=== PATIENT | female | born 1945 | race Caucasian/White ===

== ENCOUNTER 2018-10-05 12:47 | Outpatient (CLI) | payer MEDICARE, SELFPAY ==
[2018-10-05 13:15] LABS: Hemoglobin A1C 5.3 % (4.5-6.2)
[2018-10-05 13:17] LABS: ALT 117 U/L (12-78); AST 172 U/L (15-37); Albumin 3.9 g/dL (3.4-5.0); Alkaline Phosphatase 98 U/L (46-116); Anion Gap 11.8 mmol/L (3-11); BUN 9 mg/dL (7-18); Bilirubin, Total 0.6 mg/dL (0.2-1.0); CO2 26.2 mmol/L (21.0-32.0); CREATININE 0.55 mg/dL (0.55-1.02); Calcium 8.8 mg/dL (8.5-10.1); Chloride 100 mmol/L (98-107); Glucose 82 mg/dL (70-100); Potassium 4.5 mmol/L (3.5-5.1); Sodium 138 mmol/L (136-145); Total Protein 7.1 g/dL (6.4-8.2)
== END 2018-10-05 13:07 ==
DX: I10 Essential (primary) hypertension; R01.1 Cardiac murmur, unspecified; R63.8 Other symptoms and signs concerning food and fluid intake; R73.01 Impaired fasting glucose; R74.0 Nonspecific elevation of levels of transaminase and lactic acid dehydrogenase [LDH]; Z86.59 Personal history of other mental and behavioral disorders; E03.9 Hypothyroidism, unspecified
CPT/HCPCS: 36415; 80053; 83036

== ENCOUNTER 2019-10-02 22:12 | Outpatient (REF) | payer MEDICARE, SELFPAY ==
[2019-10-02 22:32] LABS: HCT 35.8 % (36.0-46.0); HGB 12.9 g/dL (12.0-15.5); Mean Corpuscular Hemoglobin 35.3 pg (27.0-33.0); Mean Corpuscular Volume 98.1 fL (80-95); Mean Platelet Volume 11.2 fL (8.0-11.0); Platelet Count 189 x1000/uL (130-400); RBC 3.65 m/cumm (4.00-5.20); RBC Distribution Width 11.3 % (11.7-14.6)
[2019-10-02 22:35] LABS: Anion Gap 11.4 mmol/L (3-11); BUN 13 mg/dL (7-18); CO2 25.6 mmol/L (21.0-32.0); CREATININE 0.82 mg/dL (0.55-1.02); Calcium 8.9 mg/dL (8.5-10.1); Chloride 91 mmol/L (98-107); Glucose 137 mg/dL (74-106); Potassium 4.1 mmol/L (3.5-5.1); Sodium 128 mmol/L (136-145)
[2019-10-02 22:38] LABS: ALT 102 U/L (14-59); AST 133 U/L (15-37)
== END 2019-10-02 22:32 ==
LOC: LBN 22:12
PROVIDERS: Nurse Practitioner Family
DX: I10 Essential (primary) hypertension (principal); Z01.818 Encounter for other preprocedural examination
CPT/HCPCS: 80048; 85027; 84450; 84460

== ENCOUNTER 2019-10-04 09:13 | Day surgery (SDC) | payer MEDICARE, SELFPAY ==
[2019-10-04 09:30] VITALS: BP 166/90; PULSE 84; RESP 18; TEMP 36.5; O2SAT 98
--- NOTE | 2019-10-04 10:52 | W.PM.DSUDISC ---
Discharge Plan Disposition Patient Disposition: HOME Condition: Good Discharge Details Reason For Visit: CATARACT Attending Provider: John Vivar Primary Care Provider: Edith Robb Home Meds and New Rx's Prescriptions: No Action lisinopril 10 mg tablet 10 mg PO DAILY Qty: 90 RF: 3 hydrochlorothiazide 25 mg tablet 12.5 mg PO DAILY Qty: 90 RF: 3 Discharge Instructions Stand Alone Forms: Post-op Topical Cataract, Viridiana Quarles (DSU) Discharge Orders Discharge Orders: Discharge Order (Routine); Ordered 10/04/19 Ordered By: John Vivar DS: Diagnosis Discharge Diagnosis (1) Nuclear sclerotic cataract of left eye: Status: Resolved
[2019-10-04] MEDS: Tetracaine 0.5% 4 ML BTL OS (11:04)
[2019-10-04] MEDS: Lidocaine 2% Jelly 6 ML SYR (11:05)
[2019-10-04] MEDS: Lidocaine 1% Pres-Free 5 ML VIAL (11:05)
[2019-10-04] MEDS: Balanced Salt Soln.-PLUS 500 ML BAG (11:16)
[2019-10-04] MEDS: Moxifloxacin-PF 1 MG/ML VIAL (11:19)
[2019-10-04] MEDS: Trypan Blue 0.06% 0.5 ML SYR (11:24)
--- NOTE | 2019-10-04 11:41 | W.PM.OP ---
Date of service: 10/04/19 Time of Service: 11:41 Operative Note Operative Note DATE OF PROCEDURE: 10/04/19 PRE-OP DIAGNOSIS: Dense nuclear cataract, left eye POST-OP DIAGNOSIS: same PROCEDURE: Cataract extraction using phacoemulsification with intraocular lens implant, left eye SURGEON: John Vivar ANESTHESIA: MAC and local (sub-tenon's anesthetic infiltration) PATHOLOGY: none sent COMPLICATIONS: None Patient was transported to: same day Patient's condition: stable Implants: Ol[employer] Ol[employer] / [employer] Tecnis [id number] Indications: Progressive decreased vision due to cataract, left eye Procedure Description: CATARACT SURGERY OPERATIVE REPORT PREOPERATIVE DIAGNOSIS: Dense nuclear cataract, left eye POSTOPERATIVE DIAGNOSIS: Same OPERATION: Cataract extraction using phacoemulsification with posterior chamber intraocular lens implant, left eye. IOL: IOL Perinatal Breastfeeding Assistant/Model: J&J Vision / SUSAN Tecnis ZCB00 IOL Power: + 22.50 diopters IOL Serial Number: [id number] Optic Diameter: 6.0mm Haptic/Overall Diameter: 13.0mm PHACO INFO: Beto [employer]urion Vision System with OZil and Active Fluidics Cumulative Dispersed Energy (CDE): 25.75 seconds SURGEON: John Vivar MD, ARPAN ANESTHESIA: Monitored Anesthesia Care (MAC), with local sub-tenon's anesthetic infiltration COMPLICATIONS: None SPECIMENS: None INDICATIONS FOR PROCEDURE: The patient is a 73-year-old lady with history of diminished visual acuity in her left eye. She is noted to have a dense nuclear cataract. The option of cataract surgery was offered to the patient and she wished to proceed. PROCEDURE: The correct surgical eye was identified and marked as the left eye and the pupil was dilated in the preoperative area using mydriatics and cycloplegics. The dilated pupil size was 7.0 mm. Oral sedation was administered in the form of an Imprimis MKO Melt (midazolam 3mg/ketamine 25mg/ondansetron 2mg). The patient was brought to the operating room where cardiopulmonary monitoring was instituted and surgical time-out was performed, confirming the correct operative eye and IOL power. Topical anesthesia was administered and ophthalmic povidone-iodine 5% was instilled into the conjunctival fornices. Lidocaine gel was applied to the cornea and the helena-ocular area was prepped with Betadine 10% solution and draped in the usual sterile fashion for intraocular surgery, including an aperture drape. A Tegaderm transparent film dressing was cut in half and used to cover the lashes and lid margins. Care was taken to sequester the lashes and lid margins under the Tegaderm dressing. A lid speculum was placed between the lids of the operative eye and the Ashleigh-Michelet operating microscope was maneuvered into position. Jorge scissors were then used to make a conjunctival buttonhole approximately 6mm posterior to the limbus in the inferonasal quadrant. Blunt dissection was carried out to expose bare sclera, and a blunt-tipped sub-tenon?s anesthesia cannula was introduced and passed posteriorly along the globe where non-preserved plain lidocaine was injected into posterior sub-Tenon?s space. A sideport knife was used to make a paracentesis port superior/superiortemporally. Intraocular phenylephrine/lidocaine was injected into the anterior chamber. The anterior chamber was then filled with Healon Pro. A 2.4mm keratome knife was used to create a half-thickness groove at the limbus and then to construct a three-plane near-clear corneal tunnel extending 2.0mm into clear cornea in the temporal position. . A flap was raised on the anterior capsule and capsulorhexis forceps were used to complete a continuous curvilinear capsulorhexis of 5.0 mm. The anterior chamber was noted to be of moderate depth with moderate zonular laxity. Balanced salt solution was then used to perform cortical cleaving hydrodissection and nuclear hydrodelineation until the lens could be freely rotated within the capsular bag. The lens nucleus was then disassembled and removed within the capsular bag and iris plane using phacoemulsification. Residual cortical material was removed using the 45-degree angled silicone I/A tip with 0.3mm port. The posterior capsule was carefully polished to remove as much residual lens epithelial cells as safely possible. The capsular bag was then inflated and the anterior chamber deepened with viscoelastic. The lens implant described above was inserted into the capsular bag using the SUSAN [place] Injector. A Kuglen hook was used to dial the IOL into position. Residual viscoelastic was then removed first from posterior to the IOL, then from the anterior chamber using the I/A handpiece. The lens implant was noted to center nicely within the capsular bag. The incisions were stromally hydrated, and the anterior chamber was reformed using BSS. Then 0.5cc of moxifloxacin 1.0mg/ml were injected into the capsular bag and anterior chamber. The incisions were checked with a Weck spear and found to be secure. Several drops of ophthalmic povidone-iodine 5% were then applied to the eye followed by two drops of Imprimis combination prednisolone/moxifloxacin/nepafenac solution. The drapes were removed and a clear plastic protective eye shield was placed over the eye. The patient was then returned to Same Day Surgery in stable condition.
== END 2019-10-04 12:21 | disposition home or self-care (01) ==
PROVIDERS: Visit Provider Ophthalmology
PROC: (CPT 66984; principal; 2019-10-04 11:30)
DX: H25.12 Age-related nuclear cataract, left eye (principal); I10 Essential (primary) hypertension
CPT/HCPCS: 66984; V2632

== ENCOUNTER 2019-10-18 09:31 | Day surgery (SDC) | payer MEDICARE, SELFPAY ==
[2019-10-18 09:35] VITALS: BP 177/99; PULSE 73; RESP 16; TEMP 36.7; O2SAT 98
--- NOTE | 2019-10-18 10:26 | W.PM.DSUDISC ---
Discharge Plan Disposition Patient Disposition: HOME Condition: Good Discharge Details Reason For Visit: CATARACT OD Attending Provider: John Vivar Primary Care Provider: Edith Robb Home Meds and New Rx's Prescriptions: No Action lisinopril 10 mg tablet 10 mg PO DAILY Qty: 90 RF: 3 hydrochlorothiazide 25 mg tablet 12.5 mg PO DAILY Qty: 90 RF: 3 Discharge Instructions Stand Alone Forms: Post-op Topical Cataract, Viridiana Quarles (DSU) Discharge Orders Discharge Orders: Discharge Order (Routine); Ordered 10/18/19 Ordered By: John Vivar DS: Diagnosis Discharge Diagnosis (1) Nuclear sclerotic cataract of right eye: Status: Resolved
[2019-10-18] MEDS: Tetracaine 0.5% 4 ML BTL OD (10:35)
[2019-10-18] MEDS: Lidocaine 2% Jelly 6 ML SYR (10:36)
[2019-10-18] MEDS: Lidocaine 1% Pres-Free 5 ML VIAL (10:44)
[2019-10-18] MEDS: Balanced Salt Soln.-PLUS 500 ML BAG (10:45)
[2019-10-18] MEDS: Moxifloxacin-PF 1 MG/ML VIAL (10:47)
--- NOTE | 2019-10-18 11:09 | ROE_ITS ---
Date of service: 10/18/19 Time of Service: 11:09 Operative Note Operative Note DATE OF PROCEDURE: 10/18/19 PRE-OP DIAGNOSIS: Nuclear cataract, right eye POST-OP DIAGNOSIS: same PROCEDURE: Cataract extraction using phacoemulsification with intraocular lens implant, right eye SURGEON: John Vivar ANESTHESIA: MAC and local (sub-tenon's anesthetic infiltration) ESTIMATED BLOOD LOSS: 0 PATHOLOGY: none sent COMPLICATIONS: None Patient was transported to: same day Patient's condition: stable Implants: [employer] / [employer] Tecnis ZCB00 intr aocular lens Indications: Progressive decreased vision due to cataract, right eye Procedure Description: CATARACT SURGERY OPERATIVE REPORT PREOPERATIVE DIAGNOSIS: Nuclear cataract, right eye POSTOPERATIVE DIAGNOSIS: Same OPERATION: Cataract extraction using phacoemulsification with posterior chamber intraocular lens implant, right eye. IOL: IOL Horticultural Services Supervisor/Model: J&J Vision / SUSAN Tecnis ZCB00 IOL Power: + 22.50 diopters IOL Serial Number: [id number] Optic Diameter: 6.0mm Haptic/Overall Diameter: 13.0mm PHACO INFO: Beto [employer]ion Vision System with OZil and Active Fluidics Cumulative Dispersed Energy (CDE): 23.67 seconds SURGEON: John Vivar MD, ARPAN ANESTHESIA: Monitored Anesthesia Care (MAC), with local sub-tenon's anesthetic infiltration COMPLICATIONS: None SPECIMENS: None INDICATIONS FOR PROCEDURE: The patient is a 73-year-old lady with history of diminished visual acuity in both eyes secondary to the development of dense bilateral nuclear cataract, left eye worse than right. She has already undergone cataract surgery in her left eye and is doing well postoperatively. She now presents for cataract surgery in the right eye. PROCEDURE: The correct surgical eye was identified and marked as the right eye and the pupil was dilated in the preoperative area using mydriatics and cycloplegics. The dilated pupil size was 7.0 mm. Oral sedation was administered in the form of an Imprimis MKO Melt (midazolam 3mg/ketamine 25mg/ondansetron 2mg). The patient was brought to the operating room where cardiopulmonary monitoring was instituted and surgical time-out was performed, confirming the correct operative eye and IOL power. Topical anesthesia was administered and ophthalmic povidone-iodine 5% was instilled into the conjunctival fornices. Lidocaine gel was applied to the cornea and the helena-ocular area was prepped with Betadine 10% solution and draped in the usual sterile fashion for intraocular surgery, including an aperture drape. A Tegaderm transparent film dressing was cut in half and used to cover the lashes and lid margins. Care was taken to sequester the lashes and lid margins under the Tegaderm dressing. A lid speculum was placed between the lids of the operative eye and the Ashleigh-Michelet operating microscope was maneuvered into position. Jorge scissors were then used to make a conjunctival buttonhole approximately 6mm posterior to the limbus in the inferonasal quadrant. Blunt dissection was carried out to expose bare sclera, and a blunt-tipped sub-tenon?s anesthesia cannula was introduced and passed posteriorly along the globe where non- preserved plain lidocaine was injected into posterior sub-Tenon?s space. A sideport knife was used to make a paracentesis port inferiortemporally. Intraocular phenylephrine/lidocaine was injected into the anterior chamber. The anterior chamber was then filled with Healon Pro. A 2.4mm keratome knife was used to create a half-thickness groove at the limbus and then to construct a three-plane near-clear corneal tunnel extending 2.0mm into clear cornea in the superiortemporal position. . A flap was raised on the anterior capsule and capsulorhexis forceps were used to complete a continuous curvilinear capsulorhexis of 5.0 mm. Balanced salt solution was then used to perform cortical cleaving hydrodissection and nuclear hydrodelineation until the lens could be freely rotated within the capsular bag. The lens nucleus was then disassembled and removed within the capsular bag and iris plane using phacoemulsification. Residual cortical material was removed using the I/A handpiece. The posterior capsule was carefully polished to remove as much residual lens epithelial cells as safely possible. The capsular bag was then inflated and the anterior chamber deepened with viscoelastic. The lens implant described above was inserted into the capsular bag using the SUSAN [place] Injector. A Kuglen hook was used to dial the IOL into position. Residual viscoelastic was then removed first from posterior to the IOL, then from the anterior chamber using the I/A handpiece. The lens implant was noted to center nicely within the capsular bag. The incisions were stromally hydrated, and the anterior chamber was reformed using BSS. Then 0.5cc of moxifloxacin 1.0mg/ml were injected into the capsular bag and anterior chamber. The incisions were checked with a Weck spear and found to be secure. Several drops of ophthalmic povidone-iodine 5% were then applied to the eye followed by two drops of Imprimis combination prednisolone/moxifloxacin/nepafenac solution. The drapes were removed and a clear plastic protective eye shield was placed over the eye. The patient was then returned to Same Day Surgery in stable condition.
[2019-10-18 11:28] VITALS: BP 183/97; PULSE 65; RESP 20; TEMP 36; O2SAT 97
== END 2019-10-18 11:35 | disposition home or self-care (01) ==
PROVIDERS: Visit Provider Ophthalmology
PROC: (CPT 66984; principal; 2019-10-18 11:30)
DX: H25.11 Age-related nuclear cataract, right eye (principal); Z96.1 Presence of intraocular lens; Z98.42 Cataract extraction status, left eye; I10 Essential (primary) hypertension; I34.0 Nonrheumatic mitral (valve) insufficiency
CPT/HCPCS: 66984; V2632

== ENCOUNTER 2020-01-22 19:45 | Emergency (ER) | payer MEDICARE, SELFPAY ==
[2020-01-22] VITALS (33 sets, daily range): BP systolic 121–191; BP diastolic 29–69; PULSE 38–70; RESP 0–25; TEMP 37; O2SAT 93–98
--- NOTE | 2020-01-22 19:30 | RT.EKG_ITS ---
APPROVED REPORT Exam: Resting ECG Patient Location: E HR:41 bpm ECG Measurements Heart Rate 41 AXIS PA [id number] P [id number] QRSd 82 QRS -20 QT 588 T 75 QTc 485 Conclusion Junctional rhythm...absent P waves, slow V-rate - disagree Bradycardia w/ 3rd degree block. Normal axis. Normal interval. No acute ST changes.
--- NOTE | 2020-01-22 20:00 | DI.CT_ITS ---
EXAM: CT HEAD WO CLINICAL HISTORY: syncope with head strike TECHNIQUE: COMPARISON: No exams were available for comparison FINDINGS: Noncontrast cranial CT was. There is right posterior parietal size scalp hematoma. No underlying ca lvarial fracture. Visualized paranasal sinuses and mastoid air cells are clear. Orbital and tempora l bone structures appear intact. There as an apparent subarachnoid hemorrhage adjacent to the frontal aspect the left temporal lobe wi th probable associated temporal lobe contusion. There is a presumed small contusion the anterior asp ect of left cerebellar hemisphere. No gross subdural or epidural hematoma. No additional focal intr acerebral findings. Ventricular size system reflects mild cerebral atrophy consistent the patient's age. IMPRESSION: Areas of apparent contusion involving anterior aspect of left temporal lobe and anterior aspect of le ft cerebellar hemisphere with associated small subarachnoid hemorrhage in the left middle fossa anter iorly. RADIATION DOSE DELIVERED: 650.75mGy.cm Total DLP
--- NOTE | 2020-01-22 20:00 | DI.RAD_ITS ---
EXAM: XR CHEST 2V PA LATERAL CLINICAL HISTORY: syncope TECHNIQUE: COMPARISON: CR CHEST 2 VIEWS PA,LAT from 06/11/2010 FINDINGS: AP and lateral views of the chest were obtained. Cardiac size is within normal limits. Lungs are cl ear. No pleural effusion or pneumothorax. Mild right convex scoliosis noted. IMPRESSION: No evidence acute process. RADIATION DOSE DELIVERED: Total DLP
--- NOTE | 2020-01-22 20:05 | NUR.NOTE ---
EKG shows 3rd degree heart block. Placed on pacer pads. pt arrives with hematoma to right wrist from EMS IV attempt.
--- NOTE | 2020-01-22 20:13 | W.ED.GENAD ---
Discharge Plan Disposition Patient Disposition: [facility] Condition: Stable Discharge Details Clinical Impression: Syncope, Third degree heart block, SAH (subarachnoid hemorrhage), Cerebellar contusion Primary Care Provider: Edith Robb ED Provider: Amado Raymond [place] Meds and New Rx's Prescriptions: No Action lisinopril 10 mg tablet 10 mg PO DAILY Qty: 90 RF: 3 hydrochlorothiazide 25 mg tablet 25 mg PO DAILY RF: 0 Medical Decision Making Patient found to be in third-degree heart block on EKG. Monitor confirms with periods of ventricular bigeminy as well. Awake and alert and hemodynamically stable. Pacer pads placed. IV and labs sent. Will CT head because of syncope and posterior trauma. Chest x-ray ordered. 21:15 - Patient remains hemodynamically stable and neurologically intact. Chest x-ray is unremarkable. CT head shows evidence of left-sided intraparenchymal contusion and subarachnoid hemorrhage. Laboratory studies significant for mild hyponatremia likely due to her hydrochlorothiazide. Magnesium is is low at 1.4. 2 g of IV mag ordered. Troponin is just slightly above normal range. TSH is slightly up but free T4 is pending. I had originally placed a call to [facility] requesting cardiology transfer. With evidence of bleed on CT scan patient will be accepted by trauma. Case discussed with surgeon, Dr. Vance. Cervical collar to be applied. Patient accepted as a trauma alert to the ED. Unfortunately, no ambulance crew was available from our area for transport due to medics all out on transfers at this time. [facility] attempting to send ground crew up to retrieve patient. Helicopter is not flying. Lab Data Lab results reviewed: Yes I reviewed the patient's lab results. ECG Data Attestation: I personally reviewed and interpreted this ECG (s) as follows: Interpretation: See EKG HPI General Mode of arrival: EMS. Date/Time Provider Initiated Documentation: 01/22/20 20:09. Limitations to Documentation: no limitations. Information obtained by: patient and EMS. HPI Narrative: Patient brought in by EMS after syncopal event at home. Patient reports that she has felt dizzy on and off for the last few days. She denies having any chest pain or palpitations. She has not been ill. There is no fever, cough, shortness of breath, vomiting, diarrhea. Patient states that she was trying to open a can in the kitchen and the next thing she knows she was on the floor. She had no warning. She did hit the back of her head. Denies headache or neck pain. Has no neurologic changes. Has no prior history of heart problems. EMS was contacted and patient brought in for evaluation. Related Data Home Medications Medication Instructions Recorded Confirmed lisinopril 10 mg tablet 10 mg PO DAILY #90 tab-cap 09/26/19 01/22/20 hydrochlorothiazide 25 mg PO DAILY 01/22/20 01/22/20 Previous Rx's Medication Instructions Recorded lisinopril 10 mg tablet 10 mg PO DAILY #90 tab-cap 09/26/19 Allergies Allergy/AdvReac Type Severity Reaction Status Date / Time No Known Allergies Allergy Verified 10/16/19 10:21 General Stated Complaint: Dizzy/Sync WILLIAMS: 2 Review of Systems Narrative: 01/07 Review of Systems completed and is negative except as stated above in HPI (Systems reviewed: Const, Eyes, ENT, Resp, CV, GI, , MSK, Skin, Neuro) [facility] Medical History Annual physical exam Benign essential hypertension (11/13/12) Elev transaminase/LDH (12/05/12) normalized 01/06 Heart murmur on physical examination (03/10/14) echo MR F/U with Edith Robb History of depression (12/05/12) pt. 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 Bradycardic but elevated systolic pressure. Normal room air O2 saturation. Const: WDWN elderly female in NAD. HEENT: NC with hematoma on occiput. Normal facial exam. Eyes: PERRL and EOMI. Neck: Supple. Trachea midline. No c-spine tenderness. Lungs: Normal respiratory effort. Lungs are clear. No chest wall tenderness. Cor: RRR without murmur/gallop. Extra beats at time. Good radial pulses. GI: Soft. NT/ND. No guarding or rebound. Back: No midline back tenderness. Neuro: GCS 15. A+O x 3. Normal speech, mentation. Cranial nerves II - XII grossly intact. No gross motor or sensory deficit. Ext: No C/C/E. Normal ROM. Deformity to right wrist is old from prior fracture. No tenderness. Skin: Warm and dry with hematoma/bleeding from IV start right forearm. Course Vital Signs Vital signs: Vital Signs Temperature 98.6 F 01/22/20 19:45 Pulse 46 L 01/22/20 19:45 Respiratory Rate 14 01/22/20 19:45 Blood Pressure 191/59 H 01/22/20 19:45 Pulse Oximetry 97 01/22/20 19:45 Temperature 98.6 F 01/22/20 19:45 Temperature Source Skin 01/22/20 19:45 Pulse 46 L 01/22/20 19:45 Respiratory Rate 17 01/22/20 19:54 Respiratory Effort 01/22/20 19:54 Respiratory Depth Normal 01/22/20 19:54 Respiratory Pattern Normal 01/22/20 19:54 Blood Pressure 191/59 H 01/22/20 19:45 Blood Pressure Position Sitting 01/22/20 19:45 Pulse Oximetry 97 01/22/20 19:45 Oxygen Delivery Method Room Air 01/22/20 19:45 Oxygen Flow Rate 0 01/22/20 19:45 Critical Care Time Critical Care Time Critical Care Time: Yes Total Critical Care Time: 60 Attestation: Upon my evaluation, this patient had a high probability of imminent or life-threatening deterioration, which required my direct attention, intervention, and personal management. I have personally provided 60 minutes of critical care time exclusive of time spent on separately billable procedures. Time includes review of laboratory data, radiology results, discussion with consultants, and monitoring for potential decompensation. Interventions were performed as documented above.
[2020-01-22 20:42] LABS: Abs Immature Grans 0.04 10^3/uL (0.0-0.06); Absolute Basophil Count 0.02 10^3/uL (0.0-0.2); Absolute Eosinophil Count 0.09 10^3/uL (0.0-0.7); Absolute Lymphocyte Count 1.37 10^3/uL (1.2-3.4); Absolute Monocyte Count 0.72 10^3/uL (0.1-0.8); Absolute Neutrophil Count 5.31 10^3/uL (1.2-6.7); Basophils % 0.3; Eosinophils % 1.2; HCT 36.9 % (36.0-46.0); Immature Grans % 0.5; Lymphocytes % 18.1; MCH 35.2 pg (27.0-33.0); MCHC 35.2 % (32.0-36.0); MPV 11.5 fL (8.0-11.0); Monocytes % 9.5; Neutrophils % 70.4; Nucleated RBC 0 %; Platelet Count 134 10^3/uL (130-400); RBC 3.69 10^6/uL (3.93-5.22); RDW 11.9 % (11.7-14.6); RDW-SD 43.3 fL; WBC 7.55 10^3/uL (4.4-10.8)
[2020-01-22] MEDS: Lactated Ringers 1,000 ML 125 ML IV (20:46)
--- NOTE | 2020-01-22 20:48 | DI.VRAD_ITS ---
Addendum created by Declan Shirley MD on 01/22/2020 8:56:24 PM EDT: THIS REPORT CONTAINS CRITICAL FINDINGS THAT MAY BE CRITICAL TO THE PATIENT CARE. As of 8:55 PM EDT on 01/22/2020 confirmed that NAM Hernandez has received the exam report, is aware of the finding, and indicated call was not necessary to discuss exam findings. Initial report created on 01/22/2020 8:48:32 PM EDT: PROCEDURE INFORMATION: Exam: CT Head Without Contrast Exam date and time: 01/22/2020 8:11 PM Age: 74 years old Clinical indication: Injury or trauma; Fall; Blunt trauma (contusions or hematomas); With loss of consciousness TECHNIQUE: Imaging protocol: Computed tomography of the head without contrast. COMPARISON: No relevant prior studies available. FINDINGS: Brain: Subarachnoid bleed around the left temporal anterior horn with small intraparenchymal component. Probable intraparenchymal contusion involving the anterior left cerebellar hemisphere. No associated subdural or subarachnoid component in posterior fossa. Ill-defined foci of hypodensity in the periventricular white matter bilaterally consistent with chronic small vessel ischemic changes. No additional cerebral parenchymal abnormalities identified. No midline shift. Cerebral ventricles: No ventriculomegaly. Bones/joints: See Soft tissues finding. Paranasal sinuses: The visualized paranasal sinuses are well pneumatized. Mastoid air cells: Mastoid air cells are clear. Soft tissues: Large posterior right scalp hematoma. No adjacent skull fracture. IMPRESSION: 1. Subarachnoid hemorrhage in the left temporal fossa with component of intraparenchymal contusion of the left temporal anterior horn. 2. Intraparenchymal contusion of the left cerebellar hemisphere. 3. Large posterior right scalp hematoma. No adjacent skull fracture. Dictated and Authenticated by: Declan Shirley MD. Ordering:OLE Fischer MD
--- NOTE | 2020-01-22 20:50 | DI.VRAD_ITS ---
PROCEDURE INFORMATION: Exam: XR Chest, 2 Views Exam date and time: 01/22/2020 8:31 PM Age: 74 years old Clinical indication: Other: Syncope TECHNIQUE: Imaging protocol: XR of the chest Views: 2 views. COMPARISON: No relevant prior studies available. FINDINGS: Tubes, catheters and devices: Transcutaneous pacer pads identified over the left chest. Lungs: The lungs are clear without evidence for infiltrate or effusion. Pleural space: Unremarkable. No pleural effusion. No pneumothorax. Heart/Mediastinum: Mild cardiomegaly with calcifications in the aortic arch. Bones/joints: Unremarkable. IMPRESSION: No acute cardiopulmonary process. Dictated and Authenticated by: Declan Shirley MD. Ordering:OLE Fischer MD
--- NOTE | 2020-01-22 20:51 | NUR.NOTE ---
Spoke with pt son Jermaine Cheney with pt permission. Aware pt will require transfer. [phone], advised will call with dispo plans.
[2020-01-22 21:08] LABS: ALT 55 U/L (14-59); AST 69 U/L (15-37); Albumin 3.6 g/dL (3.4-5.0); Alkaline Phosphatase 76 U/L (46-116); Anion Gap 12.6 mmol/L (3-11); BUN 28 mg/dL (7-18); Bilirubin, Total 0.8 mg/dL (0.2-1.0); CO2 21.4 mmol/L (21.0-32.0); CREATININE 1.14 mg/dL (0.55-1.02); Chloride 96 mmol/L (98-107); Estimated GFR 46.47 (mL/min/1.73m2); Glucose 118 mg/dL (74-106); Magnesium 1.4 mg/dL (1.8-2.4); Potassium 3.9 mmol/L (3.5-5.1); Sodium 130 mmol/L (136-145); TSH (W/Ref FT4) 4.19 uIU/mL (0.36-3.74); Total Protein 7.2 g/dL (6.4-8.2)
[2020-01-22 21:13] LABS: Troponin I 0.07 ng/mL (<0.06)
[2020-01-22] MEDS: MAGNESIUM SULFATE 2 GM/50 ML BAG IVPB (21:26)
[2020-01-22 21:31] LABS: FREE T4 1.06 ng/dL (0.76-1.46)
[2020-01-22 22:59] LABS: Troponin I 0.28 ng/mL (<0.06)
--- NOTE | 2020-01-23 01:00 | NUR.NOTE ---
Nursing Note: Attempted to call pt son, Jermaine, for update with no answer.
== END 2020-01-22 22:55 | disposition short-term general hospital (02) ==
PROVIDERS: Emergency Provider Emergency Medicine
DX: S06.370A Contusion, laceration, and hemorrhage of cerebellum without loss of consciousness, initial encounter (principal); S06.6X0A Traumatic subarachnoid hemorrhage without loss of consciousness, initial encounter; W19.XXXA Unspecified fall, initial encounter; I44.2 Atrioventricular block, complete; R55 Syncope and collapse; I10 Essential (primary) hypertension
CPT/HCPCS: 80053; 93005; 96361; 96365; 99291; L0172; 70450; 71046; 83735; 84439; 84443; 84484; 85025; 93010

== ENCOUNTER 2020-01-30 10:51 | Outpatient (CLI) | payer MEDICARE, SELFPAY ==
[2020-01-30 12:32] LABS: Anion Gap 14.1 mmol/L (3-11); BUN 11 mg/dL (7-18); CO2 23.9 mmol/L (21.0-32.0); CREATININE 0.77 mg/dL (0.55-1.02); Calcium 9.3 mg/dL (8.5-10.1); Chloride 102 mmol/L (98-107); Glucose 108 mg/dL (74-106); Potassium 4.1 mmol/L (3.5-5.1); Sodium 140 mmol/L (136-145)
== END 2020-01-30 11:11 ==
DX: I60.9 Nontraumatic subarachnoid hemorrhage, unspecified (principal); I44.2 Atrioventricular block, complete; E87.1 Hypo-osmolality and hyponatremia
CPT/HCPCS: 36415; 80048

== ENCOUNTER 2020-02-10 01:07 | Outpatient (CLI) | payer MEDICARE, SELFPAY ==
[2020-02-10 12:56] LABS: Sodium 136 mmol/L (136-145)
== END 2020-02-10 01:27 ==
DX: E87.1 Hypo-osmolality and hyponatremia (principal)
CPT/HCPCS: 36415; 84295

== ENCOUNTER 2020-02-25 00:54 | Outpatient (CLI) | payer MEDICARE, SELFPAY ==
--- NOTE | 2020-02-25 | DI.CT_ITS ---
EXAM: CT HEAD WO CLINICAL HISTORY: F/U SUBARACHNOID HEMORRHAGE,I60.9,F/U TRAUMATIC ICH TECHNIQUE: COMPARISON: CT CT HEAD WO from 01/22/2020 FINDINGS: Noncontrast cranial CT was performed and is compared with prior CT January 22 which showed left ant erior temporal lobe and left cerebellar hemisphere contusions with subarachnoid hemorrhage in left mi ddle fossa. On today's examination, the previously noted hemorrhage has resolved. No mass effect. No new intrac ranial hemorrhage. The orbital and temporal bone structures appear intact. Moderate generalized cer ebral atrophy noted. IMPRESSION: Interval resolution of previously noted areas of contusion and subarachnoid hemorrhage as described above. No evidence of acute process. RADIATION DOSE DELIVERED: 594.3mGy.cm Total DLP
== END 2020-02-25 01:14 ==
PROVIDERS: Visit Provider Surgery Trauma Surgery
DX: Z87.820 Personal history of traumatic brain injury (principal)
CPT/HCPCS: 70450

== ENCOUNTER 2020-10-05 03:08 | Outpatient (CLI) | payer MEDICARE, SELFPAY ==
[2020-10-05 12:46] LABS: ALT 63 U/L (14-59); AST 121 U/L (15-37); Albumin 4.1 g/dL (3.4-5.0); Alkaline Phosphatase 71 U/L (46-116); Anion Gap 15.1 mmol/L (3-11); BUN 18 mg/dL (7-18); Bilirubin, Total 0.8 mg/dL (0.2-1.0); CO2 23.9 mmol/L (21.0-32.0); CREATININE 0.9 mg/dL (0.55-1.02); Calcium 9.8 mg/dL (8.5-10.1); Chloride 99 mmol/L (98-107); Glucose 101 mg/dL (74-106); Sodium 138 mmol/L (136-145); Total Protein 7.3 g/dL (6.4-8.2)
== END 2020-10-05 03:09 | disposition home or self-care (01) ==
DX: E03.9 Hypothyroidism, unspecified (principal); I10 Essential (primary) hypertension; R73.01 Impaired fasting glucose; E87.1 Hypo-osmolality and hyponatremia; R74.01 Elevation of levels of liver transaminase levels
CPT/HCPCS: 36415; 80053

== ENCOUNTER → 2021-09-30 09:27 | Outpatient (BNVA) | payer MEDICARE, SELFPAY | PROVIDERS: Visit Provider Surgery | DX: C44.91 Basal cell carcinoma of skin, unspecified (principal); Z95.0 Presence of cardiac pacemaker | CPT/HCPCS: 11606; 99215; 99243 ==

== ENCOUNTER 2021-09-30 09:39 | Outpatient (REF) | payer MEDICARE, SELFPAY ==
--- NOTE | 2021-09-30 09:45 | SKI_PTH ---
PATIENT: Briana Ramirez LOC: [facility] U#:[id number] AGE/SX: 75/F ROOM: RE09/30/[address]: Court Jimenez : 1945 BED: DIS: 09/30/2021 SPEC #: [id number] RECD: 09/30/21 11:05 STATUS: FARHANA REAmador #: [id number] VERO: 09/30/21 09:[address]: Court Jimenez DEPT: Surgical Specimen RECD BY: Sugey Brush ENTERED: 09/30/21 11:07 SP TYPE: RADHAMES GONZALEZ DR: Edith Robb APRN Tissues: 1 - SKIN BIOPSY(SHAVE/PUNCH) Procedures: SKIN LEVEL 4 Comments: [id number]
== END 2021-09-30 09:40 | disposition home or self-care (01) ==
LOC: LBN 09:39
PROVIDERS: Visit Provider Surgery
DX: C44.619 Basal cell carcinoma of skin of left upper limb, including shoulder (principal)
CPT/HCPCS: 88305

== ENCOUNTER → 2021-10-28 11:24 | Outpatient (BNVA) | payer MEDICARE, SELFPAY | PROVIDERS: Visit Provider Surgery | DX: Z01.818 Encounter for other preprocedural examination (principal); C44.91 Basal cell carcinoma of skin, unspecified; I10 Essential (primary) hypertension; R06.09 Other forms of dyspnea; Z95.0 Presence of cardiac pacemaker ==

== ENCOUNTER 2021-11-08 02:42 | Outpatient (CLI) | payer MEDICARE, SELFPAY ==
[2021-11-08 10:51] LABS: Absolute Basophil Count 0.03 10^3/uL (0.0-0.2); Absolute Eosinophil Count 0.14 10^3/uL (0.0-0.7); Absolute Monocyte Count 0.46 10^3/uL (0.1-0.8); Absolute Neutrophil Count 2.64 10^3/uL (1.2-6.7); Basophils % 0.7; Eosinophils % 3.1; HCT 42.3 % (36.0-46.0); HGB 14.7 g/dL (11.2-15.7); Lymphocytes % 28.4; MCH 34.5 pg (27.0-33.0); MCHC 34.8 % (32.0-36.0); MCV 99 fL (80-95); MPV 9.9 fL (8.0-11.0); Monocytes % 10.1; Neutrophils % 57.7; Platelet Count 169 10^3/uL (130-400); RBC 4.26 10^6/uL (3.93-5.22); RDW 12.4 % (11.7-14.6); RDW-SD 45.6 fL; WBC 4.57 10^3/uL (4.4-10.8)
[2021-11-08 11:06] LABS: ALT 42 U/L (14-59); AST 45 U/L (15-37); Albumin 3.8 g/dL (3.4-5.0); Alkaline Phosphatase 87 U/L (46-116); Anion Gap 10.8 mmol/L (3-11); BUN 22 mg/dL (7-18); Bilirubin, Total 0.8 mg/dL (0.2-1.0); CO2 28.2 mmol/L (21.0-32.0); CREATININE 0.9 mg/dL (0.55-1.02); Calcium 9.7 mg/dL (8.5-10.1); Chloride 97 mmol/L (98-107); Glucose 118 mg/dL (74-106); Potassium 3.5 mmol/L (3.5-5.1); Sodium 136 mmol/L (136-145); Total Protein 8.2 g/dL (6.4-8.2)
== END 2021-11-08 02:43 | disposition home or self-care (01) ==
LOC: LBO 02:42
PROVIDERS: Visit Provider Surgery
DX: C44.619 Basal cell carcinoma of skin of left upper limb, including shoulder (principal); I10 Essential (primary) hypertension; R06.09 Other forms of dyspnea; Z72.89 Other problems related to lifestyle; Z95.0 Presence of cardiac pacemaker; Z01.818 Encounter for other preprocedural examination
CPT/HCPCS: 36415; 80053; 85025

== ENCOUNTER 2021-11-15 03:32 | Outpatient (CLI) | payer MEDICARE, SELFPAY ==
[2021-11-15 10:35] LABS: Source Nasal/Nares
[2021-11-15 15:10] LABS: COVID-19 PCR Negative (Negative)
== END 2021-11-15 03:33 | disposition home or self-care (01) ==
LOC: LBO 03:32
PROVIDERS: Visit Provider Surgery
DX: Z01.818 Encounter for other preprocedural examination (principal); Z20.822 Contact with and (suspected) exposure to COVID-19
CPT/HCPCS: 87635

== ENCOUNTER 2021-11-16 12:30 | Inpatient (IN) | payer MEDICARE, SELFPAY ==
[2021-11-16] VITALS (13 sets, daily range): BP systolic 99–167; BP diastolic 43–81; PULSE 61–100; RESP 13–22; TEMP 35.7–36.7; O2SAT 92–97; BMI 27.5
--- NOTE | 2021-11-16 08:22 | W.ANESPRE ---
General Info Date of Service Date Performed: 11/16/21 Height: 5 ft 3.5 in Weight: 71.668 kg Body Mass Index (BMI): 27.5 Surgical Procedure: Operation Date: 11/16/21 10:10 Proposed Procedure Side Surgeon p Excision Skin Cancer Lt Posterior Shoulder Left Court Jimenez DO s Possible Skin Graft Left Court Jose DO Barbara Meds Allergies and Home Medications Allergies Allergy/AdvReac Type Severity Reaction Status Date / Time No Known Allergies Allergy Verified 11/16/21 08:49 Home Medication Medication Instructions Recorded acetaminophen 325 mg capsule 650 mg PO Q4H PRN 01/28/20 sodium chloride 1 gram tablet 1,000 mg PO BID hyponatrimea #180 10/21/20 tabs hydrochlorothiazide 25 mg tablet 25 mg PO DAILY #90 tabs 05/11/21 lisinopril 10 mg tablet 10 mg PO DAILY #90 tab-caps 05/11/21 Current Visit Medications: Current Medications Generic Name Dose Route Start Last Admin Trade Name Freq PRN Reason Stop Dose Admin Acetaminophen 1,000 mg 11/16/21 06:00 Acetaminophen 500 Mg Tab PO 11/16/21 23:59 PREOP YUMIKO Gabapentin 600 mg 11/16/21 06:00 Gabapentin 300 Mg Cap PO 11/16/21 23:59 PREOP YUMIKO Ringer's Solution 1,000 mls @ 80 mls/hr 11/16/21 06:00 IV 11/16/21 23:59 INFUSION YUMIKO Cefazolin Sodium/Dextrose 2 gm in 50 mls @ 100 mls/hr 11/16/21 06:00 Ancef Duplex IVPB 11/16/21 23:59 PREOP YUMIKO IV Miscellaneous Supplies 1 each 11/16/21 06:00 Iv Access IV 11/16/21 23:59 DIRECTED YUMIKO Sodium Chloride 0 ml 11/16/21 06:00 Normal Saline Flush 10 Ml Syr IV 11/16/21 23:59 PRN PRN Sodium Chloride 0 ml 11/16/21 06:00 Normal Saline 10 Ml Vial IJ 11/16/21 23:59 DIRECTED PRN Sterile Water 0 ml 11/16/21 06:00 Water,Injection,Sterile 10 Ml Vial IJ 11/16/21 23:59 DIRECTED PRN PFSH Active Problems Active Problems: Problem Status Onset Code Basal cell carcinoma C44.91 Exertional dyspnea R06.09 Subarachnoid hemorrhage, traumatic S06.6X9A Essential hypertension I10 Pacemaker Z95.0 Hyponatremia E87.1 Contact dermatitis L25.9 Breast lump 01/03/13 N63.0 Alcohol intake above recommended sensible limits Z72.89 Elev transaminase/LDH 12/05/12 R74.0 Heart murmur on physical examination 03/10/14 R01.1 Psoriasiform dermatitis 05/15/14 L30.8 Medical History Medical History (Updated 11/16/21 @ 08:48 by Shirley Milner RN) History of depression (12/05/12) pt. denies this Hx of cardiac pacemaker Surgical History Surgical History History of cataract surgery Tobacco Smoking/Tobacco Use Status: Never Alcohol Alcohol Intake: current Alcohol intake frequency: holidays/special occasions only Alcohol type: beer Substance Use Substance use type: does not use Vital Signs and Lab Results Lab Results Blood Type / Crossmatch: No Data to Display Complete Blood Count: White Blood Count 4.57 10^3/uL (4.4-10.8) 11/08/21 10:48 Red Blood Count 4.26 10^6/uL (3.93-5.22) 11/08/21 10:48 Hemoglobin 14.7 g/dL (11.2-15.7) 11/08/21 10:48 Hematocrit 42.3 % (36.0-46.0) 11/08/21 10:48 Platelet Count 169 10^3/uL (130-400) 11/08/21 10:48 Complete Metabolic Panel: Sodium Level 136 mmol/L (136-145) 11/08/21 10:48 Potassium Level 3.5 mmol/L (3.5-5.1) 11/08/21 10:48 Chloride Level 97 mmol/L (98-107) L 11/08/21 10:48 Carbon Dioxide Level 28.2 mmol/L (21.0-32.0) 11/08/21 10:48 Blood Urea Nitrogen 22 mg/dL (7-18) H 11/08/21 10:48 Creatinine 0.9 mg/dL (0.55-1.02) 11/08/21 10:48 Estimated GFR/1.73 m2 >= 60.00 (mL/min/1.73m2) 11/08/21 10:48 Calcium Level 9.7 mg/dL (8.5-10.1) 11/08/21 10:48 Albumin 3.8 g/dL (3.4-5.0) 11/08/21 10:48 Glucose Level 118 mg/dL (74-106) H 11/08/21 10:48 Liver Function Panel: Alanine Aminotransferase (ALT/SGPT) 42 U/L (14-59) 11/08/21 10:48 Aspartate Amino Transf (AST/SGOT) 45 U/L (15-37) H 11/08/21 10:48 Coagulation Panel: No Data to Display Cardiac Panel: No Data to Display Arterial Blood Gas: No Data to Display Venous Blood Gas: No Data to Display Pancreas Panel: No Data to Display Thyroid Panel: No Data to Display Infectious Disease: Coronavirus (COVID-19)(PCR) Negative (Negative) 11/15/21 09:55 Coronavirus 2019 Source Nasal/Nares 11/15/21 09:55 Blood Cultures: No Data to Display Toxicology Panel: No Data to Display Anesthesia Assessment and Plan Anesthesia History Personal History: PONV (with ether) Family History: No Family History of Anesthesia Complications Exercise Tolerance Exercise Tolerance: Metabolic Equivalents<4 Pertinent Negatives Pertinent Negatives: No Symptoms of GERD, No Major Pulmonary Symptoms or Complaints and No History of CVA/TIA Cardiac & Pulmonary Exam Cardiac Exam: Normal S1/S2 Heart Sounds Pulmonary Exam: Clear Bilateral Breath Sounds Implantable Cardiac Device Does patient have a Pacemaker or an ICD?: Yes Device Industrial Relations Commissioner:: [employer] PM 2271 Reason for Placement:: [facility] Date of Last Device Interrogation:: 10/25/21 Airway Exam Known Difficult Airway: No Mallampati Class: 2 Mouth Opening: Normal (> 3cm) Thyromental Distance: Greater than 3 cm Neck Range of Motion: Full ROM Neck Circumference: Normal Teeth Condition: Normal Dentition ASA Classification ASA Score: ASA 2 Emergency Case?: No NPO Status NPO Status: NPO Clears >2 hours, Solids >8 hours Anesthesia Plan Resuscitation Status: Full Code Anesthesia Technique: General Anesthesia Airway Planned: Endotracheal Tube Monitors Used: Standard Monitors
[2021-11-16] MEDS: Gabapentin 300 MG CAP 600 MG PO (08:54)
[2021-11-16] MEDS: Acetaminophen 500 MG TAB 1000 MG PO ×3 (08:54→21:25)
[2021-11-16] MEDS: Lactated Ringers 1,000 ML 80 ML IV (09:05)
[2021-11-16] MEDS: ceFAZolin 2 GM/50 ML BAG IVPB (10:26)
--- NOTE | 2021-11-16 11:10 | SKI_PTH ---
PATIENT: Briana Ramirez LOC: U#:[id number] AGE/SX: 76/F ROOM: RE11/16/[address]: Court Jimenez : 1945 BED: A DIS: 11/17/2021 SPEC #: [id number] RECD: 11/16/21 13:02 STATUS: FARHANA REQ #: [id number] VERO: 11/16/21 11:[address]: Court Jimenez DEPT: Surgical Specimen RECD BY: Michelle Riley ENTERED: 11/16/21 13:04 SP TYPE: RADHAMES GONZALEZ DR: Edith Robb APRN Tissues: 1 - SKIN BIOPSY(SHAVE/PUNCH) Procedures: SKIN LEVEL 4 Comments: [id number]
[2021-11-16] MEDS: Bupivacaine 0.25% Pres-Free 30 ML VIAL (11:30)
[2021-11-16] MEDS: Cellulose,Oxidized 4X8 1 PACKET MC (11:41)
[2021-11-16] MEDS: EPINEPHrine 1 MG/10 ML SYR (11:45)
--- NOTE | 2021-11-16 12:37 | W.PM.OP ---
Date of service: 11/16/21 Time of Service: 12:37 Operative Note Operative Note DATE OF PROCEDURE: 11/16/21 PRE-OP DIAGNOSIS: basal cell skin cacner- 6.6x6.6cm POST-OP DIAGNOSIS: same PROCEDURE: excision basal cell skin cancer- 6.6x6.6 lesion w/ .5 cm margins combined: primary closer and STSG graft site is 6x3cm. SURGEON: Court Jimenez REGISTERED NURSE POST PARTUM: Rupinder Peña ANESTHESIA TYPE: Local By Surgeon and General LMA/ETT Refer to Anesthesia Record ESTIMATED BLOOD LOSS: 10 PATHOLOGY: other (suture is at 12 oclock position ) COMPLICATIONS: None Patient was transported to: PACU Patient's condition: stable Procedure Description: Patient is here today for excision of a basal cell skin cancer on her left shoulder. It was previously biopsied. Patient was offered radiation to shrink the lesion to make it more amendable to excision, but she did not want to do this. We discussed doing a skin graft, what it would entail, that she will have a large scar, that she will need the wound VAC for 2 to 3 weeks, that she would have a scar from the donor site and this would take 6 to 12 weeks to heal and may be painful. Patient has elected to do this. She is marked in preop. Informed consent is obtained explaining risks and benefits of procedure including but not limited to: Bleeding, infection, pneumonia, blood clots, graft failure need to heal by secondary intent. Scarring, the donor site will be painful and will take multiple weeks to heal. Recurrence of the cancer and complications of anesthesia. Patient is brought to the operative room suite and placed in supine position. General anesthesia is ministered per the department of anesthesia. Patient is then placed in the left lateral decubitus position. All bony surfaces were padded. Beanbag was used to aid in positioning as is inflated. Patient is secured to the table. The donor site is prepped in usual fashion using all alcohol scrub solution. A tumor site is prepped and draped in usual sterile fashion using a Betadine scrub solution. She did receive preop antibiotics. Timeout is performed. The tumor site is attended to first. The original tumor is 6.6 x 6.6 cm. The total defect is 7.5 cm wide and 11 cm long. The lesion is taken down to the fat. A suture is placed at the 12 o'clock position to hayden the tumor. It is passed off field. Electrocautery used to provide hemostasis. It is underlying. The site is packed with went sponges and pressure is held. The donor site was then attended to. A 4.4 x 4.4cm piece of tissue is removed is tissue using a 2 wide Palmira dermatome at .5cm thick. Epinephrine soaked sponges were then placed on the donor site and pressure is held. The skin is then placed on the mesher and meshed at 1-1.5. I am able to place 2 sutures of 2-0 Prolene at the 6 and 12 sites to primarily close approximately 30% of the incision. The graft is placed in the center of the defect-for a total of 6 x 3 cm / 18 cm?. The graft is then affixed with edel. adaptic was placed in the defect for as a contact layer. The wound VAC is placed over this and sealed. There are no leaks THere is no bleeding from donor site. Xeroform is placed over this. 4 x 4's and ABDs are placed over this that is wrapped with Kerlix and ABD. Patient tolerated the procedure well without complication and transferred to recovery room in stable condition.
--- NOTE | 2021-11-16 12:48 | PDOC.HHF2F_ITS ---
Home Health Certification Home Health Certification: 1. Encounter Date and Reason I certify that Briana Ramirez was seen by Court Jimenez on 11/17/21 and that I had a eqyk-iw-owck encounter with this patient that meets the physician face to face encounter requirements. 2. Clinical Findings Supporting Skilled Need and Homebound Status I certify that home health services are medically necessary, include either intermittent custodial and/or physical/speech therapy, and that this patient is homebound in that absences from the home require considerable and taxing effort and are infrequent or of short duration, or are attributable to the need to receive medical care. [X] (a) Attached documentation from encounter provides clinical findings supporting skilled need and homebound status (including what assistance patient requires to leave the home). The encounter with the patient was in whole, or in part, for the following medical condition, which is the primary reason for home health care: Correction: wound vac change Physical Therapy: Speech Therapy: Homebound:yes 3. Certification and Authentication I certify that I composed the above information based on my clinical judgement relating to this patient's medical condition and, if applicable, clinical findings communicated to me by the NPP or inpatient physician who performed the Home Health Referral. All further orders will be obtained through (Community Based Physician - PCP)
--- NOTE | 2021-11-16 12:49 | W.PM.DSUDISC ---
Discharge Plan Disposition Condition: Good Discharge Details Attending Provider: Court Jimenez Primary Care Provider: Edith Robb Home Meds and New Rx's Prescriptions: No Action acetaminophen 325 mg capsule 650 mg PO Q4H PRN sodium chloride 1 gram tablet 1,000 mg PO BID Qty: 180 2RF hydrochlorothiazide 25 mg tablet 25 mg PO DAILY Qty: 90 3RF lisinopril 10 mg tablet 10 mg PO DAILY Qty: 90 3RF Discharge Instructions Additional Instructions: -Keep an ice bag on the leg/donor site 20 minutes on and 20 minutes off. Ice keeps the swelling down and swelling causes pain. Make sure you wrap the ice pack in a towel and don't apply directly to the skin. -DO NOT PUT ICE ON THE SKIN GRAFT/SHOULDER -No driving x1 week or of you are taking narcotic pain medications. -Follow-up with Dr. Jimenez 11/25 at 10am. We will do the first VAC change at that time. -First wound VAC change will be done on in the office 11/25. After that, it will be changed every Monday [facility] RN. PT has all supplies. She will need dressing changes to the donor site on the left upper thigh. Do not remove Xeroform from donor site. Change ABDs/Curlex every 1 to 2 days depending on the amount of drainage. Keep David wrap in place to provide pressure. -no diet restrictions/regular diet -no straining to move bowels -pain meds are very constipating: if you do not move your bowels daily take a dose of OTC milk of magnesia/MIralax -sponge bath. Not get donor site from wound graft site/or wound vac wet - You may find that your appetite is smaller. Eat 3-6 small meals throughout the day. It is important to drink lots of water after surgery, 6-10 glasses a day. -If you were given an incentive spirometry (breathing sheet metal welder?), continue to do this 10x/hour while awake. -We do want you up walking, at least 5-6 times per day. This is very important to prevent pneumonia and blood clots. You can climb stairs, take them slowly. -No lifting over 5 pounds. This is very important to avoid ripping your stitches -You may find that you are very tired after surgery- this is normal. -please do not smoke for a minimum of 72 hours after surgery. Activity:: Activity as Tolerated Activity:: see above Equipment/Supplies:: No Equipment Needed Diet:: As Tolerated
--- NOTE | 2021-11-16 13:31 | PDOC.HHF2F_ITS ---
Home Health Certification Home Health Certification: 1. Encounter Date and Reason I certify that Briana Ramirez was seen by Court Jimenez on 11/16/21 and that I had a [id number] encounter with this patient that meets the physician face to face encounter requirements. 2. Clinical Findings Supporting Skilled Need and Homebound Status I certify that home health services are medically necessary, include either intermittent group home and/or physical/speech therapy, and that this patient is homebound in that absences from the home require considerable and taxing effort and are infrequent or of short duration, or are attributable to the need to receive medical care. [X] (a) Attached documentation from encounter provides clinical findings supporting skilled need and homebound status (including what assistance patient requires to leave the home). The encounter with the patient was in whole, or in part, for the following medical condition, which is the primary reason for home health care: Senior Care: wound care/wound vac changes First wound VAC change will be done on in the office 11/25. After that it would be changed every Monday. She will need dressing changes to the donor site on the left upper thigh. Do not remove Xeroform. Change ABDs/Curlex every 1 to 2 days depending on the amount of drainage. Keep David wrap in place to provide pressure. Physical Therapy: Speech Therapy: Homebound:yes 3. Certification and Authentication I certify that I composed the above information based on my clinical judgement relating to this patient's medical condition and, if applicable, clinical findings communicated to me by the NPP or inpatient physician who performed the Home Health Referral. All further orders will be obtained through Barbara (Community Based Physician - PCP)
--- NOTE | 2021-11-16 13:46 | W.PM.PROGNOT ---
Date of Service Date of service: 11/16/21 Time of Service: 13:46 Assessment and Plan Assessment and plan (1) Basal cell carcinoma: Status: Acute Assessment and plan: The patient is doing well post-op. Their pain is well controlled. They are having no nausea or vomiting. The pt is not having any chest pain or SOB, productive cough; no calf pain or swelling. The pt is making good urine. The pt pain is adequately controlled. The case was discussed with nursing and patient?s progress reviewed. All of the pt's home medications were addressed and adjusted accordingly for their oral intact status. HEENT: no jaundice. no eye pain/drainage/redness/swelling. Mild sore throat Cardio- NSR no chest pain, BP stable. Pulm: no sob or productive cough. no hemoptysis Incision- clean/dry. Dressing intact no excessive bleeding or drainage I discussed with the patient and/or there family about the findings in surgery and the pt's progress. We reviewed expectations for progress in the hospital; what the pt could expect for recovery time and length of stay. We discussed the importance of walking and pulmonary toilet to avoid blood clots and pneumonia. Continue current plans for pulmonary toilet, GI and DVT prophylaxis. We shall continue the current plan for pain management as it is at an appropriate level, and working well for the pt. Appropriate measures will be taken for constipation prevention, and this was also reviewed with the pt. The wound care plan was reviewed with nursing as well. see orders (2) Essential hypertension: Status: Acute (3) Pacemaker: Status: Acute (4) Elev transaminase/LDH: Status: Acute (5) Hyponatremia: Status: Acute Objective Last Vital Signs Temp 36.2 C L 11/16/21 13:05 Pulse 63 11/16/21 13:20 Resp 14 11/16/21 13:20 BP 110/43 L 11/16/21 13:20 Pulse Ox 95 11/16/21 13:20
--- NOTE | 2021-11-16 14:33 | W.ANESPOSTOP ---
Postoperative Evaluation Date, Time and Location Date Performed: 11/16/21 Time Performed: 14:33 Patient Location: Med/Surg (215) Vital Signs Most Recent Imported Vital Signs: Most Recent Vital Signs Temp Pulse Resp BP Pulse Ox 36.2 C L 61 14 103/53 L 95 11/16/21 13:05 11/16/21 13:35 11/16/21 13:35 11/16/21 13:35 11/16/21 13:35 Pain Score Most Recent Pain Score: Most Recent Pain Score Pain Level 0 11/16/21 13:35 Assessment Mental Status: Awake (Alert & Oriented to Patient Baseline) Airway and Respiratory Function: Patent airway with normal (patient baseline) respiratory exam Cardiovascular Function: Hemodynamically Stable Hydration Status: Adequately Hydrated Nausea & Vomiting: No Nausea or Vomiting Pain: Pt. Denies Any Pain Peripheral Nerve Block: Patient did not receive a nerve block
[2021-11-16] MEDS: Gabapentin 100 MG CAP PO ×2 (14:45→19:41)
[2021-11-16] MEDS: Normal Saline 1,000 ML 75 ML IV (14:46)
[2021-11-17 01:12] VITALS: BP 148/95; PULSE 75; RESP 18; TEMP 36.7; O2SAT 95
[2021-11-17] MEDS: Normal Saline Flush 10 ML SYR IVP (06:02)
[2021-11-17 07:10] LABS: Platelet Count 182 10^3/uL (130-400)
[2021-11-17 08:16] VITALS: BP 155/94; PULSE 85; RESP 16; TEMP 36.1; O2SAT 97
[2021-11-17] MEDS: Polyethylene Glycol 3350 17 GM PACKET PO (08:35)
[2021-11-17] MEDS: Enoxaparin 40 MG/0.4 ML SYR SC (08:36)
[2021-11-17] MEDS: Lisinopril 10 MG TAB PO (08:37)
[2021-11-17] MEDS: Gabapentin 100 MG CAP PO ×2 (08:37→13:30)
[2021-11-17] MEDS: hydroCHLOROthiazide 25 MG TAB PO (08:37)
[2021-11-17] MEDS: Salt Supplement (BUFFERED) TAB 1 TAB PO (08:37)
--- NOTE | 2021-11-17 10:47 | W.PM.PROGNOT ---
Date of Service Date of service: 11/17/21 Time of Service: 10:47 Assessment and Plan Assessment and plan (1) Basal cell carcinoma: Status: Acute Assessment and plan: Wound vac in place. Dressing in place on left upper thigh Patient denies having any pain Patient will have Home Health services for wound care upon d/c D/C home later today. (2) Essential hypertension: Status: Acute (3) Pacemaker: Status: Acute (4) Elev transaminase/LDH: Status: Acute (5) Hyponatremia: Status: Acute Subjective Subjective Interval history since last seen: Patient states she is feeling well this morning. She denies having any pain at this time. Exam Const General: cooperative, healthy appearing and comfortable Orientation: alert and oriented x3 Resp Effort & Inspection: normal respiratory effort, no audible wheezes and no cough Objective Last Vital Signs Temp 36.1 C L 11/17/21 08:16 Pulse 85 11/17/21 08:16 Resp 16 11/17/21 08:16 BP 155/94 H 11/17/21 08:16 Pulse Ox 97 11/17/21 08:16 Laboratory Results - last 24 hr 11/17/21 06:50 Plt Count 182
--- NOTE | 2021-11-17 11:31 | W.PM.DS.N ---
Date of service: 11/17/21 DS: Diagnosis Discharge Diagnosis (1) Basal cell carcinoma: Status: Acute Asessment and Plan: Our office will contact you with results of the excision and final pathology (2) Essential hypertension: Status: Acute Asessment and Plan: Continue with home dose lisinopril and hydrochlorothiazide Discharge Plan Disposition Patient Disposition: HOME W/HOME HEALTH SERVICE Condition: Good Discharge Details Reason For Visit: Basal Cell Skin Cancer,S/P Exicision,Skin Grafting Admit Date/Time: 11/16/21 12:30 Admit Provider: Court Jimenez Attending Provider: Court Jimenez Primary Care Provider: Edith Robb Home Meds and New Rx's Prescriptions: New gabapentin 100 mg Capsule 100 mg PO TID 10 Days Qty: 30 0RF cyclobenzaprine 5 mg tablet 5 mg PO TID PRN (Reason: muscle spasm) 5 Days Qty: 15 0RF Rx Instructions: take one pill by mouth every 8 hours if needed for pain or muscle spasm polyethylene glycol 3350 17 gram Powder In Packet 17 g PO DAILY 5 Days Qty: 30 0RF Rx Instructions: use one tablespoon mixed with a liquid for each meal oxycodone 5 mg Tablet 5 mg PO Q8H PRN (Reason: pain) 3 Days Qty: 9 0RF Rx Instructions: take one pill by mouth as needed for pain. This medication is highly addictive and should be used sparingly Continued acetaminophen 325 mg capsule 650 mg PO Q4H PRN sodium chloride 1 gram tablet 1,000 mg PO BID Qty: 180 2RF hydrochlorothiazide 25 mg tablet 25 mg PO DAILY Qty: 90 3RF lisinopril 10 mg tablet 10 mg PO DAILY Qty: 90 3RF Discharge Instructions Additional Instructions: -Keep an ice bag on the leg/donor site 20 minutes on and 20 minutes off. Ice keeps the swelling down and swelling causes pain. Make sure you wrap the ice pack in a towel and don't apply directly to the skin. -DO NOT PUT ICE ON THE SKIN GRAFT/SHOULDER -No driving x1 week or of you are taking narcotic pain medications. -Follow-up with Dr. Jimenez 11/25 at 10am. We will do the first VAC change at that time. -First wound VAC change will be done on in the office 11/25. After that, it will be changed every Monday am[facility] RN. PT has all supplies. She will need dressing changes to the donor site on the left upper thigh. Do not remove Xeroform from donor site. Change ABDs/Curlex every 1 to 2 days depending on the amount of drainage. Keep David wrap in place to provide pressure. -no diet restrictions/regular diet -no straining to move bowels -pain meds are very constipating: if you do not move your bowels daily take a dose of OTC milk of magnesia/MIralax -sponge bath. Not get donor site from wound graft site/or wound vac wet - You may find that your appetite is smaller. Eat 3-6 small meals throughout the day. It is important to drink lots of water after surgery, 6-10 glasses a day. -If you were given an incentive spirometry (breathing cherry picker operator?), continue to do this 10x/hour while awake. -We do want you up walking, at least 5-6 times per day. This is very important to prevent pneumonia and blood clots. You can climb stairs, take them slowly. -No lifting over 5 pounds. This is very important to avoid ripping your stitches -You may find that you are very tired after surgery- this is normal. -please do not smoke for a minimum of 72 hours after surgery. Stand Alone Forms: Nursing Discharge Form Referrals: Edith Robb NP [Primary Care Provider] - 11/24/21 8:20 am Activity:: see above Equipment/Supplies:: No Equipment Needed Diet:: As Tolerated DS: Data Vitals/I&O Vitals and I&O: Vital Signs Temperature 97.0 F L 11/17/21 08:16 Temperature Source Tympanic 11/17/21 08:16 Pulse 85 11/17/21 08:16 Pulse Rhythm Regular 11/17/21 05:00 Respiratory Rate 16 11/17/21 08:16 Respiratory Effort Non-Labored 11/17/21 05:00 Respiratory Depth Normal 11/17/21 05:00 Respiratory Pattern Normal 11/17/21 05:00 Blood Pressure 155/94 H 11/17/21 08:16 Pulse Oximetry 97 11/17/21 08:16 Respiratory End-tidal CO2 36 11/16/21 13:35 Oxygen Delivery Method Room Air 11/17/21 08:16 Oxygen Flow Rate 0 11/17/21 08:16 Pain Level 0 11/17/21 08:16 Intake & Output 11/16/21 11/16/21 11/17/21 11:59 23:59 11:59 Intake Total 2179 / 2179 370 / 370 Output Total 590 / 590 300 / 300 Balance 1589 / 1589 70 / 70 Weight 156 lb 11.979 oz Intake: IV 1539 / 1539 Oral 640 / 640 370 / 370 Output: Output, Wound Vac (mls) 0 / 0 Urine 580 / 580 300 / 300 Estimated Blood Loss Other: Urine Color Yellow Yellow Urine Appearance Clear Clear Urine Odor Normal Comment pT voided in toliet, missed hat Stool Size Small Stool Characteristics Soft Emesis Description None Voiding Methods Toilet Toilet Data Completed and Pending Labs on day of discharge: Labs from last 24 hours 11/17/21 06:50 Plt Count 182 PFSH All Active Problems 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) Heart murmur on physical examination (Acute 03/10/14) echo MR F/U with Edith Brado Elev transaminase/LDH (Acute 12/05/12) normalized 01/06 Contact dermatitis (Acute) Breast lump (Acute 01/03/13) Alcohol intake above recommended sensible limits (Acute) Hyponatremia (Acute) 08/2021-on sodium tablet supplementation Pacemaker (Acute) about 2019, syncope tx at [facility] [place], associated with complete heart block Essential hypertension (Acute) Subarachnoid hemorrhage, traumatic (Acute) 12/2021-tx at [facility] [place] Neuro sx, resolved without sequellae Exertional dyspnea (Acute) Basal cell carcinoma (Acute) Medical History History of depression (12/05/12) pt. denies this Hx of cardiac pacemaker Surgical History History of cataract surgery Social History Smoking/Tobacco Use Status: Never Smoking risk assessment performed?: Yes Alcohol Intake: current Alcohol Intake frequency: holidays/special occasions only Alcohol type: beer Substance use type: does not use Do you feel safe at home: Yes Do you feel safe in your relationship?: Yes
--- NOTE | 2021-11-17 13:17 | W.PM.DS.N ---
Date of service: 11/17/21 Time of Service: 13:17 DS: Diagnosis Discharge Diagnosis (1) Basal cell carcinoma: Status: Acute Asessment and Plan: This has been excised, the office will follow-up with results of the pathology report. We will continue negative pressure wound therapy to your office visit on November 25 (2) Essential hypertension: Status: Acute Asessment and Plan: Resume your home dose of lisinopril and hydrochlorothiazide. Discharge Plan Disposition Patient Disposition: HOME W/HOME HEALTH SERVICE Condition: Good Discharge Details Reason For Visit: Basal Cell Skin Cancer,S/P Exicision,Skin Grafting Admit Date/Time: 11/16/21 12:30 Admit Provider: Court Jimenez Attending Provider: Court Jimenez Primary Care Provider: Edith Robb Hospital Course Hospital Course: 76 y/o female whom was admitted following excision of basal cell skin cancer lesion located on her left upper shoulder with skin grafting. Patient was kept overnight for observation to ensure safety and pain control. Patient's pain was well controlled through the evening and mid day. Patient is tolerating a regular diet and is set up to have home health services upon d/c. Wound vac is in place over the upper left shoulder. Dressing of gauze, ABDs and david wrap are covering the skin grafting site on her left upper thigh. -Follow-up with Dr. Jimenez 11/25 at 10am. We will do the first VAC change at that time. Home Meds and New Rx's Prescriptions: New gabapentin 100 mg Capsule 100 mg PO TID 10 Days Qty: 30 0RF cyclobenzaprine 5 mg tablet 5 mg PO TID PRN (Reason: muscle spasm) 5 Days Qty: 15 0RF Rx Instructions: take one pill by mouth every 8 hours if needed for pain or muscle spasm polyethylene glycol 3350 17 gram Powder In Packet 17 g PO DAILY 5 Days Qty: 30 0RF Rx Instructions: use one tablespoon mixed with a liquid for each meal oxycodone 5 mg Tablet 5 mg PO Q8H PRN (Reason: pain) 3 Days Qty: 9 0RF Rx Instructions: take one pill by mouth as needed for pain. This medication is highly addictive and should be used sparingly Continued acetaminophen 325 mg capsule 650 mg PO Q4H PRN sodium chloride 1 gram tablet 1,000 mg PO BID Qty: 180 2RF hydrochlorothiazide 25 mg tablet 25 mg PO DAILY Qty: 90 3RF lisinopril 10 mg tablet 10 mg PO DAILY Qty: 90 3RF Discharge Instructions Additional Instructions: -Keep an ice bag on the leg/donor site 20 minutes on and 20 minutes off. Ice keeps the swelling down and swelling causes pain. Make sure you wrap the ice pack in a towel and don't apply directly to the skin. -DO NOT PUT ICE ON THE SKIN GRAFT/SHOULDER -No driving x1 week or if you are taking narcotic pain medications. -Follow-up with Dr. Jimenez 11/25 at 10am. We will do the first VAC change at that time. -First wound VAC change will be done on in the office 11/25. After that, it will be changed every Monday [facility] RN. PT has all supplies. She will need dressing changes to the donor site on the left upper thigh. Do not remove Xeroform from donor site. Change ABDs/Curlex every 1 to 2 days depending on the amount of drainage. Keep David wrap in place to provide pressure. -no diet restrictions/regular diet -no straining to move bowels -pain meds are very constipating: if you do not move your bowels daily take a dose of OTC milk of magnesia/MIralax -sponge bath. Not get donor site from wound graft site/or wound vac wet - You may find that your appetite is smaller. Eat 3-6 small meals throughout the day. It is important to drink lots of water after surgery, 6-10 glasses a day. -If you were given an incentive spirometry (breathing hospital product specialist?), continue to do this 10x/hour while awake. -We do want you up walking, at least 5-6 times per day. This is very important to prevent pneumonia and blood clots. You can climb stairs, take them slowly. -No lifting over 5 pounds. This is very important to avoid ripping your stitches -You may find that you are very tired after surgery- this is normal. -please do not smoke for a minimum of 72 hours after surgery. Stand Alone Forms: Nursing Discharge Form Referrals: Edith Robb NP [Primary Care Provider] - 11/24/21 8:20 am Activity:: see above Equipment/Supplies:: No Equipment Needed Diet:: As Tolerated Discharge Orders Discharge Orders: Discharge Order (Routine); Ordered 11/17/21 Ordered By: Galen Pantoja Discharge Data Discharge Date/Time-TO BE ENTERED AT DEPARTURE: 11/17/21 16:16 DS: Summary Time Spent with Patient providing and/or coordinating discharge services: Less than 30 minutes Status at Discharge Functional status at discharge: independent ambulation Overall status at discharge: patient is back to baseline Mental Status: mental status grossly normal Speech and Movement: speech and movement normal Mood: congruent mood Affect: normal affect Exam Const General: cooperative, healthy appearing and comfortable Orientation: alert and oriented x3 Eyes General: appearance normal, both eyes and all related structures Conjunctivae: conjunctivae normal Sclera: sclerae normal Resp Effort & Inspection: normal respiratory effort, no audible wheezes and no cough Cardio Jugular venous pressure: no JVD Rate: regular rate GI Inspection: non-distended Palpation: soft, no guarding, no hernias and nontender Auscultation: normal bowel sounds Skin General skin exam: normal turgor Wounds: wounds noted Other: Wound on the left upper shoulder is clean, there is no erythema, and the negative pressure wound therapy seems to be holding just fine. Neuro General: patient alert, patient awake and patient oriented x3 Cognition: normal cognition Extrem Right lower extremity: no edema Left lower extremity: no edema Psych Mental Status: mental status grossly normal Speech and Movement: speech and movement normal Mood: congruent mood Affect: normal affect DS: Data Vitals/I&O Vitals and I&O: Vital Signs Temperature 36.1 C L 11/17/21 08:16 Temperature Source Tympanic 11/17/21 08:16 Pulse 85 11/17/21 08:16 Pulse Rhythm Regular 11/17/21 11:39 Respiratory Rate 16 11/17/21 08:16 Respiratory Effort Non-Labored 11/17/21 11:39 Respiratory Depth Normal 11/17/21 11:39 Respiratory Pattern Irregular 11/17/21 11:39 Blood Pressure 155/94 H 11/17/21 08:16 Pulse Oximetry 97 11/17/21 08:16 Respiratory End-tidal CO2 36 11/16/21 13:35 Oxygen Delivery Method Room Air 11/17/21 08:16 Oxygen Flow Rate 0 11/17/21 08:16 Pain Level 0 11/17/21 08:16 Intake & Output 11/16/21 11/17/21 11/17/21 18:59 06:59 18:59 Intake Total 1049 / 2179 1130 / 2179 370 / 370 Output Total 290 / 890 600 / 890 Balance 759 / 1289 530 / 1289 370 / 370 Weight 71.1 kg Intake: IV 1049 / 1539 490 / 1539 Oral 640 / 640 370 / 370 Output: Output, Wound Vac (mls) 0 / 0 Urine 280 / 880 600 / 880 Estimated Blood Loss Other: Urine Color Light Susan Yellow Urine Appearance Clear Clear Clear Urine Odor None Normal Comment pT voided in toliet, missed hat Stool Size Small Stool Characteristics Soft Emesis Description None Voiding Methods Toilet Toilet Toilet Data Completed and Pending Labs on day of discharge: Labs from last 24 hours 11/17/21 06:50 Plt Count 182 PFSH All Active Problems 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) Heart murmur on physical examination (Acute 03/10/14) echo MR F/U with Edith Brado Elev transaminase/LDH (Acute 12/05/12) normalized 01/06 Contact dermatitis (Acute) Breast lump (Acute 01/03/13) Alcohol intake above recommended sensible limits (Acute) Hyponatremia (Acute) 08/2021-on sodium tablet supplementation Pacemaker (Acute) about 2019, syncope tx at [facility] – [place], associated with complete heart block Essential hypertension (Acute) Subarachnoid hemorrhage, traumatic (Acute) 12/2021-tx at [facility] [place] Neuro sx, resolved without sequellae Exertional dyspnea (Acute) Basal cell carcinoma (Acute) Medical History History of depression (12/05/12) pt. denies this Hx of cardiac pacemaker Surgical History History of cataract surgery Social History Smoking/Tobacco Use Status: Never Smoking risk assessment performed?: Yes Alcohol Intake: current Alcohol Intake frequency: holidays/special occasions only Alcohol type: beer Substance use type: does not use Do you feel safe at home: Yes Do you feel safe in your relationship?: Yes
[2021-11-17] MEDS: Acetaminophen 500 MG TAB 1000 MG PO (13:30)
== END 2021-11-17 16:16 | disposition home health service (06) | DRG 577 ==
LOC: SUR 12:52 → MS 14:19
PROVIDERS: Admitting Provider Surgery; Visit Provider Surgery
PROC: 0HRCX74 Replacement of Left Upper Arm Skin with Autologous Tissue Substitute, Partial Thickness, External Approach (ICD-10-PCS; CPT 11606; principal; 2021-11-16 10:00)
PROC: 0HRCX74 Replacement of Left Upper Arm Skin with Autologous Tissue Substitute, Partial Thickness, External Approach (ICD-10-PCS; CPT 11606; 2021-11-16 10:00)
DX: C44.619 Basal cell carcinoma of skin of left upper limb, including shoulder (principal); E87.1 Hypo-osmolality and hyponatremia; Z95.0 Presence of cardiac pacemaker; I10 Essential (primary) hypertension
CPT/HCPCS: 11606; 15100; 36415; J1650; 85049; 88305; J0690; J1100; J2405; J2704

== ENCOUNTER → 2021-11-25 10:00 | Outpatient (BNVA) | payer MEDICARE, SELFPAY | PROVIDERS: Visit Provider Surgery | DX: Z94.5 Skin transplant status (principal); C44.91 Basal cell carcinoma of skin, unspecified; L30.8 Other specified dermatitis; Z95.0 Presence of cardiac pacemaker ==

== ENCOUNTER → 2021-12-02 14:22 | Outpatient (BNVA) | payer MEDICARE, SELFPAY | PROVIDERS: Visit Provider Surgery | DX: Z51.89 Encounter for other specified aftercare (principal); C44.91 Basal cell carcinoma of skin, unspecified; Z94.5 Skin transplant status ==

== ENCOUNTER → 2021-12-09 11:20 | Outpatient (BNVA) | payer MEDICARE, SELFPAY | PROVIDERS: Visit Provider Surgery | DX: Z51.89 Encounter for other specified aftercare (principal); C44.619 Basal cell carcinoma of skin of left upper limb, including shoulder ==

== ENCOUNTER → 2021-12-16 10:45 | Outpatient (BNVA) | payer MEDICARE, SELFPAY | PROVIDERS: Visit Provider Surgery | DX: C44.619 Basal cell carcinoma of skin of left upper limb, including shoulder (principal); Z51.89 Encounter for other specified aftercare ==

== ENCOUNTER → 2021-12-23 13:35 | Outpatient (BNVA) | payer MEDICARE, SELFPAY | PROVIDERS: Visit Provider Surgery | DX: C44.619 Basal cell carcinoma of skin of left upper limb, including shoulder (principal); Z51.89 Encounter for other specified aftercare ==

== ENCOUNTER → 2022-01-06 12:47 | Outpatient (BNVA) | payer MEDICARE, SELFPAY | PROVIDERS: Visit Provider Surgery | DX: Z51.89 Encounter for other specified aftercare (principal); C44.619 Basal cell carcinoma of skin of left upper limb, including shoulder ==

== ENCOUNTER → 2022-03-04 09:57 | Outpatient (BNVA) | payer MEDICARE, SELFPAY | PROVIDERS: PCP Nurse Practitioner Family; Referring Provider Nurse Practitioner Family; Visit Provider Surgery | DX: Z94.5 Skin transplant status (principal); L30.8 Other specified dermatitis; C44.91 Basal cell carcinoma of skin, unspecified | CPT/HCPCS: 99212 ==

== ENCOUNTER 2022-11-04 02:42 | Outpatient (CLI) | payer MEDICARE, SELFPAY ==
[2022-11-04 13:11] LABS: ALT 49 U/L (14-59); AST 70 U/L (15-37); Albumin 3.7 g/dL (3.4-5.0); Alkaline Phosphatase 93 U/L (46-116); Anion Gap 9.8 mmol/L (3-11); BUN 19 mg/dL (7-18); Bilirubin, Total 0.6 mg/dL (0.2-1.0); CO2 27.2 mmol/L (21.0-32.0); CREATININE 0.9 mg/dL (0.55-1.02); Calcium 9.4 mg/dL (8.5-10.1); Chloride 97 mmol/L (98-107); Estimated GFR 65.84 (mL/min/1.73m2); Glucose 119 mg/dL (74-106); Sodium 134 mmol/L (136-145); Total Protein 7.7 g/dL (6.4-8.2)
== END 2022-11-04 02:43 | disposition home or self-care (01) ==
LOC: LOS 02:43
PROVIDERS: PCP Nurse Practitioner Family; Visit Provider Nurse Practitioner Family
DX: I10 Essential (primary) hypertension (principal); R74.01 Elevation of levels of liver transaminase levels
CPT/HCPCS: 36415; 80053

== ENCOUNTER 2023-12-05 02:33 | Outpatient (CLI) | payer MEDICARE, SELFPAY ==
[2023-12-05 12:51] LABS: ALT 60 U/L (14-59); AST 77 U/L (15-37); Albumin 3.5 g/dL (3.4-5.0); Alkaline Phosphatase 75 U/L (46-116); Anion Gap 11.1 mmol/L (3-11); BUN 17 mg/dL (7-18); Bilirubin, Total 0.48 mg/dL (0.2-1.0); CO2 26.9 mmol/L (21.0-32.0); Calcium 9.3 mg/dL (8.5-10.1); Chloride 101 mmol/L (98-107); Estimated GFR 57.31 (mL/min/1.73m2); Glucose 126 mg/dL (74-106); Potassium 3.8 mmol/L (3.5-5.1); Sodium 139 mmol/L (136-145); Total Protein 7.3 g/dL (6.4-8.2)
== END 2023-12-05 02:34 | disposition home or self-care (01) ==
LOC: LOS 02:33
PROVIDERS: PCP Nurse Practitioner Family; Visit Provider Nurse Practitioner Family
DX: I10 Essential (primary) hypertension (principal); Z72.89 Other problems related to lifestyle
CPT/HCPCS: 36415; 80053

== ENCOUNTER → 2024-08-12 12:54 | Outpatient (BNVA) | payer MEDICARE, SELFPAY | PROVIDERS: PCP Nurse Practitioner Family; Referring Provider Nurse Practitioner Family; Visit Provider Student in an Organized Health Care Education/Training Program | DX: R19.4 Change in bowel habit (principal) | CPT/HCPCS: 99213 ==

== ENCOUNTER 2024-08-26 06:49 | Day surgery (SDC) | payer MEDICARE, SELFPAY ==
[2024-08-26 07:13] VITALS: BP 129/95; PULSE 114; RESP 16; TEMP 35.9; O2SAT 97
[2024-08-26] MEDS: Lactated Ringers 1,000 ML 80 ML IV (07:27)
[2024-08-26 08:37] VITALS: BMI 26.8
--- NOTE | 2024-08-26 08:37 | ANES.PREOP_ITS ---
General Info Date of Service Date Performed: 08/26/24 Height: 5 ft 2 in Weight: 66.6 kg Body Mass Index (BMI): 26.8 Surgical Procedure: Operation Date: 08/26/24 08:35 Proposed Procedure Side Surgeon p Colonoscopy Wilmer Mon MD Actual Procedure Side Surgeon p Colonoscopy Not Applicable Wilmer Mon MD Pre-Op Diagnosis Post-Op Diagnosis Screening colonoscopy Meds Allergies and Home Medications Allergies Allergy/AdvReac Type Severity Reaction Status Date / Time No Known Allergies Allergy Verified 08/26/24 07:18 Home Medication ?Medication ?Instructions ?Recorded acetaminophen 325 mg capsule 650 mg PO Q4H PRN 01/28/20 hydrochlorothiazide 25 mg tablet See Rx Instructions .Route 06/07/24 .COMPLEX #90 tabs lisinopril 10 mg tablet See Rx Instructions .Route 06/07/24 .COMPLEX #90 tabs sodium chloride 1 gram tablet 1,000 mg PO BID hyponatrimea #180 06/07/24 tabs bisacodyl 5 mg tablet,delayed 5 mg PO ONCE #4 tabs 08/12/24 release (Dulcolax (bisacodyl)) polyethylene glycol 3350 17 17 g PO ONCE #238 grams 08/12/24 gram/dose oral powder Current Visit Medications: Current Medications Generic Name Dose Route Start Last Admin Trade Name Freq PRN Reason Stop Dose Admin Ringer's Solution 1,000 mls @ 80 mls/hr 08/26/24 06:00 08/26/24 07:27 IV 08/26/24 23:59 80 mls/hr INFUSION YUMIKO Administration IV Miscellaneous Supplies 1 each 08/26/24 06:00 Iv Access IV 08/26/24 23:59 DIRECTED YUMIKO Sodium Chloride 0 ml 08/26/24 06:00 Normal Saline Flush 10 Ml Syr IV 08/26/24 23:59 PRN PRN Sodium Chloride 0 ml 08/26/24 06:00 Normal Saline 10 Ml Vial IJ 08/26/24 23:59 DIRECTED PRN Sterile Water 0 ml 08/26/24 06:00 Water,Injection,Sterile 10 Ml Vial IJ 08/26/24 23:59 DIRECTED PRN PFSH Active Problems Active Problems: Problem Status Onset Code Bowel habit changes Acute R19.4 Change in bowel movement Acute R19.8 S/P split thickness skin graft Acute Z94.5 Basal cell carcinoma Acute C44.91 Exertional dyspnea Acute R06.09 Subarachnoid hemorrhage, traumatic Acute S06.6X9A Essential hypertension Acute I10 Pacemaker Acute Z95.0 Hyponatremia Acute E87.1 Alcohol intake above recommended sensible limits Acute Z72.89 Breast lump Acute 01/03/13 N63.0 Contact dermatitis Acute L25.9 Elev transaminase/LDH Acute 12/05/12 R74.0 Heart murmur on physical examination Acute 03/10/14 R01.1 Psoriasiform dermatitis Acute 05/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 denies this Surgical History Surgical History History of cataract surgery Tobacco Smoking/Tobacco Use Status: Never Passive smoking exposure: No Second hand exposure: No Alcohol Alcohol Intake: current Alcohol intake frequency: a few times a week Alcohol type: beer Substance Use Substance use: Never Substance use type: does not use Vital Signs and Lab Results Vital Signs Most Recent Vital Signs in EMR: Most Recent Vital Signs Temp Pulse Resp BP Pulse Ox 35.9 C L 114 H 16 129/95 H 97 08/26/24 07:13 08/26/24 07:13 08/26/24 07:13 08/26/24 07:13 08/26/24 07:13 Lab Results Blood Type / Crossmatch: No Data to Display Complete Blood Count: No Data to Display Complete Metabolic Panel: No Data to Display Liver Function Panel: No Data to Display Coagulation Panel: No Data to Display Cardiac Panel: No Data to Display Arterial Blood Gas: No Data to Display Venous Blood Gas: No Data to Display Pancreas Panel: No Data to Display Thyroid Panel: No Data to Display Infectious Disease: No Data to Display Blood Cultures: No Data to Display Toxicology Panel: No Data to Display Anesthesia Assessment and Plan Anesthesia History Personal History: No History of Anesthesia Complications Family History: No Family History of Anesthesia Complications Exercise Tolerance Exercise Tolerance: Metabolic Equivalents<4 Pertinent Negatives Pertinent Negatives: No Symptoms of GERD Cardiac & Pulmonary Exam Cardiac Exam: Normal S1/S2 Heart Sounds Pulmonary Exam: Clear Bilateral Breath Sounds Implantable Cardiac Device Does patient have a Pacemaker or an ICD?: Yes Device Computer Console Operator:: [employer] Reason for Placement:: CHB Date of Last Device Interrogation:: 05/22/24 Airway Exam Known Difficult Airway: No Mallampati Class: 2 Mouth Opening: Normal (> 3cm) Thyromental Distance: Greater than 3 cm Neck Range of Motion: Full ROM Neck Circumference: Normal Teeth Condition: Normal Dentition ASA Classification ASA Score: ASA 3 Emergency Case?: No NPO Status NPO Status: NPO Clears >2 hours, Solids >8 hours Anesthesia Plan Resuscitation Status: Full Code Anesthesia Technique: General Anesthesia Airway Planned: Natural Airway Monitors Used: Standard Monitors
--- NOTE | 2024-08-26 08:45 | W.COLOREPORT ---
Date of service: 08/26/24 Time of Service: 08:45 Colonoscopy Report Procedure Description: PROCEDURES PERFORMED: 1. Colonoscopy with hot snare polypectomy x2 2. Endoscopic clip placement x 2 3. Endoscopic submucosal injection/tattoo PREOPERATIVE DIAGNOSIS: Bowel habit changes POSTOPERATIVE DIAGNOSIS: Colorectal polyps, grade 1 internal hemorrhoids SURGEON: Kate Mon MD INDICATION FOR PROCEDURE: the patient is a 78-year-old woman who has never had a colonoscopy. She noticed some bowel habit changes and also has some perceived discomfort and difficulty in her pelvic region. No family history of colon cancer. Presumption of pelvic floor dysfunction is the most likely explanation however colonoscopy is indicated to rule out the possibility of a low colon or rectal cancer. FINDINGS: Normal terminal ileum. Polyps: In the descending colon ~50cm is a large, 12-15 mm sessile polyp that was removed with hot snare in 1 piece. The relatively?large mucosal defect was approximated with endoscopic clips. Submucosal injection of ink was performed just distal to the resection site. In the sigmoid colon a pedunculated 7-10 mm polyp was removed with hot snare with a single resection on the stalk. None of these polyps are felt to explain any of the symptoms she complains about. It is felt that there was no explanation for her symptoms within the colon or the rectum. There is no obvious diverticular disease seen anywhere. Mild grade 1 internal hemorrhoids are present and her pelvic floor seems to have significant laxity to it subjectively. SURVEILLANCE interval/FOLLOW-UP: Pending path results of the polyp at 50cm. If there is any dysplasia, then the site needs to be reassessed in the next 3-6 months. If there is no dysplasia, then a repeat colonoscopy in 3 years should be acceptable. SPECIMENS: Yes EBL: Minimal COMPLICATIONS: None QUALITY of prep: Excellent Procedure in detail: The patient gave written consent and was in agreement with the indications, the potential risks as well as the benefits of the procedure. They were taken to the endoscopy suite and laid in the left lateral decubitus position. A timeout was performed and anesthesia was administered which was tolerated well. I started the procedure. Digital rectal and visual examination was performed and grossly within normal limits. A well-lubricated flexible colonoscope was then introduced and passed without any notable difficulty all the way to the cecum identified by the ileocecal valve and the appendiceal orifice. The terminal ileum was briefly, superficially intubated and looked normal. The scope was then slowly withdrawn with the above-noted findings. The patient tolerated the procedure well and was taken to the PACU in hemodynamically stable condition.
--- NOTE | 2024-08-26 08:46 | W.PM.DSUDISC ---
Date of service: 08/26/24 Discharge Plan Disposition Patient Disposition: Home Condition: Good Discharge Details Attending Provider: Wilmer Mon Primary Care Provider: Kingsley Sanchez Home Meds and New Rx's Prescriptions: No Action acetaminophen 325 mg capsule 650 mg PO Q4H PRN bisacodyl [Dulcolax (bisacodyl)] 5 mg tablet,delayed release (DR/EC) 5 mg PO ONCE Qty: 4 0RF Rx Instructions: Take per colonoscopy instructions provided by ordering providers office polyethylene glycol 3350 17 gram/dose powder 17 g PO ONCE Qty: 238 0RF Rx Instructions: Take per colonoscopy instructions provided by ordering providers office sodium chloride 1 gram tablet 1,000 mg PO BID Qty: 180 2RF lisinopril 10 mg tablet See Rx Instructions .ROUTE .COMPLEX Qty: 90 3RF Dose Instruction: TAKE ONE TABLET BY MOUTH EVERY DAY Rx Instructions: TAKE ONE TABLET BY MOUTH EVERY DAY hydrochlorothiazide 25 mg tablet See Rx Instructions .ROUTE .COMPLEX Qty: 90 3RF Dose Instruction: TAKE ONE TABLET BY MOUTH EVERY DAY Rx Instructions: TAKE ONE TABLET BY MOUTH EVERY DAY Discharge Instructions Additional Instructions: FINDINGS: A number of polyps were found inside of the and removed. I do not think they are related to any of your symptoms but it was still important for us to remove them. You will get called with the biopsy results and you may need to have another colonoscopy soon but most likely have another one again in 3 years. For your symptoms that have been bothering you, I recommend seeing a pelvic floor coverer apprentice - python architect Activity:: Activity as Tolerated Diet:: As Tolerated Discharge Orders Discharge Orders: Discharge Order (Routine); Ordered 08/26/24 Ordered By: Wilmer Mon
--- NOTE | 2024-08-26 09:00 | BOWEL_PTH ---
PATIENT: Birana Ramirez LOC: [facility] U#:[id number] AGE/SX: 78/F ROOM: RE08/26/[address]: Wilmer Mon : 1945 BED: DIS: 08/26/2024 SPEC #: [id number] RECD: 08/26/24 12:56 STATUS: FARHANA RE #: [id number] VERO: 08/26/24 09:[address]: Wilmer Mon DEPT: Surgical Specimen RECD BY: Michelle Riley ENTERED: 08/26/24 12:56 SP TYPE: Bowel OTHR DR: Kingsley John DNP Tissues: 1 - BIOPSY BOWEL 2 - BIOPSY BOWEL Procedures: GROSS AND MICRO LEVEL 4 IMMUNOPEROXIDASE STAIN Comments: [id number]
[2024-08-26] MEDS: Endoscopic Tattoo 5 ML SYR IJ (09:12)
[2024-08-26 09:25] VITALS: BP 103/67; PULSE 91; RESP 12; TEMP 36.4; O2SAT 98
--- NOTE | 2024-08-26 09:32 | W.ANESPOSTOP ---
Postoperative Evaluation Date, Time and Location Date Performed: 08/26/24 Time Performed: 09:32 Patient Location: Day Surgery Unit Vital Signs Most Recent Imported Vital Signs: Most Recent Vital Signs Temp Pulse Resp BP Pulse Ox 36.4 C L 91 H 12 103/67 98 08/26/24 09:25 08/26/24 09:25 08/26/24 09:25 08/26/24 09:25 08/26/24 09:25 Pain Score Most Recent Pain Score: Most Recent Pain Score Pain Level 0 08/26/24 09:25 Assessment Mental Status: Awake (Alert & Oriented to Patient Baseline) Airway and Respiratory Function: Patent airway with normal (patient baseline) respiratory exam Cardiovascular Function: Hemodynamically Stable Hydration Status: Adequately Hydrated Nausea & Vomiting: No Nausea or Vomiting Pain: Pt. Denies Any Pain Peripheral Nerve Block: Patient did not receive a nerve block
[2024-08-26 09:58] VITALS: BP 133/50; PULSE 64; RESP 16; TEMP 36.4; O2SAT 98
== END 2024-08-26 10:47 | disposition home or self-care (01) ==
PROVIDERS: PCP Nurse Practitioner Family; Visit Provider Student in an Organized Health Care Education/Training Program
PROC: 0DJD8ZZ Inspection of Lower Intestinal Tract, Via Natural or Artificial Opening Endoscopic (ICD-10-PCS; CPT 45378; principal; 2024-08-26 08:30)
DX: R19.4 Change in bowel habit (principal); K64.0 First degree hemorrhoids; D12.5 Benign neoplasm of sigmoid colon; C18.9 Malignant neoplasm of colon, unspecified
CPT/HCPCS: 45385; 88305; 88361; J2003; J2704

== ENCOUNTER → 2024-10-14 09:48 | Outpatient (BNVA) | payer MEDICARE, SELFPAY | PROVIDERS: PCP Nurse Practitioner Family; Referring Provider Nurse Practitioner Family; Visit Provider Student in an Organized Health Care Education/Training Program | DX: C18.9 Malignant neoplasm of colon, unspecified (principal) | CPT/HCPCS: 99215 ==

== ENCOUNTER 2024-10-14 13:19 | Outpatient (CLI) | payer MEDICARE, SELFPAY ==
[2024-10-14 11:46] LABS: Estimated GFR 87.92 (mL/min/1.73m2)
[2024-10-14 18:16] LABS: CEA 3.2 ng/mL (See Note)
== END 2024-10-14 13:20 | disposition home or self-care (01) ==
LOC: LBO 13:19
PROVIDERS: PCP Nurse Practitioner Family; Visit Provider Student in an Organized Health Care Education/Training Program
DX: C18.9 Malignant neoplasm of colon, unspecified (principal)
CPT/HCPCS: 36415; 99215; 82378; 82565

== ENCOUNTER 2024-10-24 01:56 | Outpatient (CLI) | payer MEDICARE, SELFPAY ==
[2024-10-24] MEDS: Barium Sulfate 2% W/V-Berry Smoothie 450 ML BTL PO (08:19)
[2024-10-24] MEDS: Barium Sulfate 2% W/V-Creamy Vanilla Smoothie 450 ML BTL PO (08:20)
[2024-10-24] MEDS: Normal Saline - Diluent 50 ML VIAL IJ (10:15)
[2024-10-24] MEDS: Omnipaque 350 MG/ML 500 ML BTL-Imaging package IJ (10:16)
--- NOTE | 2024-10-24 10:27 | DI.CT_ITS ---
Exam(s) CT CHEST/ABD/PEL W EXAM: CT CHEST/ABD/PEL W CLINICAL HISTORY: large polyp descending colon invasive adenocarcino. TECHNIQUE: Imaging Protocol: Axial computed tomography images with coronal and sagittal reformatted images were created and reviewed CONTRAST MATERIAL: Intravenous: Omnipaque 350 Contrast volume:80 mL Oral: Yes. Oral contrast was also administered for bowel opacification. COMPARISON: No exams were available for comparison FINDINGS: CHEST: LUNGS: There are no confluent infiltrates nor pleural effusions. There are no ominous lung nodules. There are no significant focal findings in trachea and mainstem bronchi. No bronchiectasis.. No evidence of pulmonary edema. No obvious pulmonary emboli. MEDIASTINUM: There is no hilar nor mediastinal adenopathy. Visualized thyroid unremarkable. CARDIAC: There is bipolar left subclavian pacemaker lead tips in RA and RV. Heart size upper normal. No pericardial effusion. The diameter of the ascending thoracic aorta is within normal limits. No aneurysms. No dissection. OSSEOUS: No significant osseous lesions.. ABDOMEN: There is no ascites. No abnormal mesenteric masses. LIVER: There are no focal hepatic lesions nor dilatation of intrahepatic ducts. GALLBLADDER/BILIARY: There are gallstones within a nondistended gallbladder. The gallbladder does not appear edematous and there is no pericholecystic fluid. CBD is not dilated. PANCREAS: No evidence of pancreatic mass nor dilatation of the pancreatic duct. SPLEEN: Spleen is not enlarged. There are no intrasplenic lesions. Splenic and portal veins are patent. ADRENALS: There are no significant adrenal masses. KIDNEYS: No calculi nor hydronephrosis. No solid renal masses. No cysts evident. ABDOMINAL AORTA: Calcified but not enlarged. Also no iliac artery aneurysms. LYMPH NODES: There is no retroperitoneal nor paraaortic adenopathy. ABDOMINAL WALL: No evidence of significant anterior abdominal wall nor inguinal hernia. GI: There is no evidence of bowel obstruction. PELVIS: LYMPH NODES: There is no intrapelvic nor inguinal adenopathy. GI: No evidence of appendicitis.No evidence of sigmoid diverticulitis. URINARY BLADDER: No calculi nor masses evident REPRODUCTIVE: Uterus and adnexal regions appear age-appropriate. There is no free fluid in the adnexal regions and cul-de-sac. OSSEOUS: No significant osseous lesions. No fractures. IMPRESSION: 1. There is no evidence of metastatic disease in the chest, abdomen, and pelvis. 2. Cholelithiasis. However, there is no evidence of acute cholecystitis nor dilatation of the biliary tree. RADIATION DOSE DELIVERED: 998.05mGy.cm Total DLP DATA REPOSITORY: All CT scans at this facility are submitted to the National Radiology Data Registry (NRDR) Dose Index Registry (DIR) with the [employer] (ACR). RADIATION OPTIMIZATION: All CT scans at this facility use at least one of these dose optimization techniques: automated exposure control; mA and/or kV adjustment per patient size (includes targeted exams where dose is matched to clinical indication); or iterative reconstruction.
== END 2024-10-24 02:16 ==
PROVIDERS: PCP Nurse Practitioner Family; Visit Provider Student in an Organized Health Care Education/Training Program
DX: K80.80 Other cholelithiasis without obstruction (principal); C18.9 Malignant neoplasm of colon, unspecified
CPT/HCPCS: 74177; 71260; 82378; 82565

== ENCOUNTER 2024-12-11 07:45 | Outpatient (CLI) | payer MEDICARE, SELFPAY ==
--- NOTE | 2024-12-11 07:45 | RT.EKG_ITS ---
APPROVED REPORT Exam: Resting ECG Reason for Exam: ROSALES Patient Location: O HR:83 bpm ECG Measurements Heart Rate 83 AXIS RI 224 P 61 QRSd 137 QRS 177 QT 459 T -33 QTc 540 Conclusion Ventricular-paced complexes...other complexes also detected No further analysis attempted due to paced rhythm
== END 2024-12-11 07:46 | disposition home or self-care (01) ==
LOC: DI.CARD 07:45
PROVIDERS: PCP Nurse Practitioner Family; Visit Provider Student in an Organized Health Care Education/Training Program
DX: Z95.0 Presence of cardiac pacemaker (principal); R06.09 Other forms of dyspnea; I44.2 Atrioventricular block, complete
CPT/HCPCS: 93010

== ENCOUNTER → 2024-12-11 10:01 | Outpatient (BNVA) | payer MEDICARE, SELFPAY | PROVIDERS: PCP Nurse Practitioner Family; Referring Provider Nurse Practitioner Family; Visit Provider Student in an Organized Health Care Education/Training Program | DX: I44.2 Atrioventricular block, complete (principal); Z45.018 Encounter for adjustment and management of other part of cardiac pacemaker; R06.09 Other forms of dyspnea | CPT/HCPCS: 93005; 93280 ==

== ENCOUNTER 2024-12-16 06:00 | Day surgery (SDC) | payer MEDICARE, SELFPAY ==
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
[2024-12-16 06:15] VITALS: BP 159/83; PULSE 94; RESP 18; TEMP 36.3; O2SAT 98
[2024-12-16] MEDS: Lactated Ringers 1,000 ML 80 ML IV (06:43)
--- NOTE | 2024-12-16 07:12 | ANES.PREOP_ITS ---
General Info Date of Service Date Performed: 12/16/24 Height: 5 ft 5 in Weight: 63.9 kg Body Mass Index (BMI): 23.4 Surgical Procedure: Operation Date: 12/16/24 07:35 Proposed Procedure Side Surgeon p Colonoscopy Wilmer Mon MD Meds Allergies and Home Medications Allergies Allergy/AdvReac Type Severity Reaction Status Date / Time No Known Allergies Allergy Verified 12/16/24 06:27 Home Medication ?Medication ?Instructions ?Recorded acetaminophen 325 mg capsule 650 mg PO Q4H PRN 0 hydrochlorothiazide 25 mg tablet See Rx Instructions . Route 06/07/24 .COMPLEX #90 tabs lisinopril 10 mg tablet See Rx Instructions .Route 0 06/07/24 .COMPLEX #90 tabs sodium chloride 1 gram tablet 1,000 mg PO BID hyponatr imea #180 06/07/24 tabs bisacodyl 5 mg tablet,delayed 5 mg PO ONCE colonscopy bowel prep 11/05/24 release (Dulcolax (bisacodyl)) #4 tabs polyethylene glycol 3350 17 238 g PO ONCE colonoscopy prep 11/05/24 gram/dose oral powder #238 grams Current Visit Medications: Current Medications Generic Name Dose Route Start Last Admin Trade Name Freq PRN Reason Stop Dose Admin Ringer's Solution 1,000 mls @ 80 mls/hr 12/16/24 06:00 12/16/24 06:43 IV 12/16/24 23:59 80 mls/hr INFUSION YUMIKO Administration IV Miscellaneous Supplies 1 each 12/16/24 06:00 Iv Access IV 12/16/24 23:59 DIRECTED YUMIKO Sodium Chloride 0 ml 12/16/24 06:00 Normal Saline Flush 10 Ml Syr IV 12/16/24 23:59 PRN PRN Sodium Chloride 0 ml 12/16/24 06:00 Normal Saline 10 Ml Vial IJ 12/16/24 23:59 DIRECTED PRN Sterile Water 0 ml 12/16/24 06:00 Water,Injection,Sterile 10 Ml Vial IJ 12/16/24 23:59 DIRECTED PRN PFSH Active Problems Active Problems: Problem Status Onset Code Colon cancer Chronic C18.9 Bowel habit changes Acute R19.4 Change in bowel movement Acute R19.8 S/P split thickness skin graft Acute Z94.5 Basal cell carcinoma Acute C44.91 Exertional dyspnea Acute R06.09 Subarachnoid hemorrhage, traumatic Acute S06.6X9A Essential hypertension Acute I10 Pacemaker Acute Z95.0 Hyponatremia Acute E87.1 Alcohol intake above recommended sensible limits Acute Z72.89 Breast lump Acute 01/03/13 N63.0 Contact dermatitis Acute L25.9 Elev transaminase/LDH Acute 12/05/12 R74.0 Heart murmur on physical examination Acute 03/10/14 R01.1 Psoriasiform dermatitis Acute 05/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 denies this Surgical History Surgical History Hx of colonoscopy with polypectomy (~08/2024) Endoscopic clip placement X2, Endoscopic submucosal Inj tatoo History of cataract surgery Tobacco Smoking/Tobacco Use Status: Never Passive smoking exposure: Yes Second hand exposure: No Alcohol Alcohol Intake: current Alcohol intake frequency: a few times a week Alcohol type: beer Substance Use Substance use: Never Substance use type: does not use Vital Signs and Lab Results Vital Signs Most Recent Vital Signs in EMR: Most Recent Vital Signs Temp Pulse Resp BP Pulse Ox 36.3 C L 94 H 18 159/83 H 98 12/16/24 06:15 12/16/24 06:15 12/16/24 06:15 12/16/24 06:15 12/16/24 06:15 Imaging and Studies Imaging and Studies Study information below may be from another EMR and interpreted by another provider. Please see original notes in EMR for more complete details. Echocardiogram Summary: 02/2014:STUDY INDICATIONS: Murmur FINDINGS: LEFT VENTRICLE/LVEF: Left ventricular ejection fraction 60-65%. Normal size. RIGHT VENTRICLE: Right ventricle not well visualized. No subcostal views. AORTIC VALVE: Trileaflet. Mild aortic insufficiency. No stenosis. MITRAL VALVE: Mild to moderate mitral insufficiency. No stenosis. Mild mitral annular calcification. TRICUSPID VALVE: Mild tricuspid insufficiency. RSV/PA/RIGHT ATRIAL PRESSURE: Estimated at 20-25 mmHg., plus right atrial pressure. PULMONIC VALVE: No pulmonic stenosis or insufficiency. ATRIA: Left and right atria within normal limits. DIASTOLIC INDICES: GREAT VESSELS: The inferior vena cava is not visualized. PERICARDIUM: No obvious effusion, rhythm sinus. Anesthesia Assessment and Plan Anesthesia History Personal History: No History of Anesthesia Complications Family History: No Family History of Anesthesia Complications Exercise Tolerance Exercise Tolerance: Metabolic Equivalents<4 Pertinent Negatives Pertinent Negatives: No Symptoms of GERD Cardiac & Pulmonary Exam Cardiac Exam: Normal S1/S2 Heart Sounds Pulmonary Exam: Clear Bilateral Breath Sounds Implantable Cardiac Device Does patient have a Pacemaker or an ICD?: Yes Device Customer Loyalty Representative:: [employer] Reason for Placement:: [facility] Date of Last Device Interrogation:: 08/21/24 Airway Exam Known Difficult Airway: No Mallampati Class: 2 Mouth Opening: Normal (> 3cm) Thyromental Distance: Greater than 3 cm Neck Range of Motion: Full ROM Neck Circumference: Normal Teeth Condition: Normal Dentition ASA Classification ASA Score: ASA 3 Emergency Case?: No NPO Status NPO Status: NPO Clears >2 hours, Solids >8 hours Anesthesia Plan Resuscitation Status: Full Code Anesthesia Technique: General Anesthesia Airway Planned: Natural Airway Monitors Used: Standard Monitors
[2024-12-16 07:13] VITALS: BMI 23.4
--- NOTE | 2024-12-16 07:56 | BOWEL_PTH ---
PATIENT: Briana Ramirez LOC: [facility] U#:[id number] AGE/SX: 79/F ROOM: RE12/16/[address]: Wilmer Mon : 1945 BED: DIS: 12/16/2024 SPEC #: [id number] RECD: 12/16/24 12:40 STATUS: [facility] #: [id number] VERO: 12/16/24 07:[address]: Wilmer Mon DEPT: Surgical Specimen RECD BY: Michelle Riley ENTERED: 12/16/24 12:41 SP TYPE: Bowel OTHR DR: Kingsley John DNP Tissues: 1 - BIOPSY BOWEL Procedures: GROSS AND MICRO LEVEL 4 Comments: [id number]
[2024-12-16 08:04] VITALS: BP 124/63; PULSE 65; RESP 16; TEMP 36.2; O2SAT 98
--- NOTE | 2024-12-16 08:13 | W.COLOREPORT ---
Date of service: 12/16/24 Time of Service: 08:13 Colonoscopy Report Procedure Description: PROCEDURES PERFORMED: 1. Colonoscopy with cold forceps biopsy x2 2. Hot snare Ablation/fulguration/destruction of colon polyp PREOPERATIVE DIAGNOSIS: Surveillance colonoscopy, malignant polyp POSTOPERATIVE DIAGNOSIS: Possible polyp regrowth, grade 1 internal hemorrhoids SURGEON: Kate Mon MD INDICATION FOR PROCEDURE: the patient is an 79-year-old woman who had a malignant polyp removed 3 months ago. Colonoscopy indicated to reassess the site and ensure no re-growth. FINDINGS: The polypectomy site tattoo is easily found at about 50 cm in the descending colon. The scar from polypectomy is also easily identified just proximal to the tattoo. Cold forceps biopsies were taken to sample the tissue directly overlying the scar on both sides. There is a small, 2-3 mm patch of tissue which COULD be early regrowth. Nothing else around the scar is suspicious visually. The biopsies will sample this tissue definitively. I used the hot snare to ablate and destroy this tissue as well as the peripheral tissue around it. SURVEILLANCE interval/FOLLOW-UP: Pending path results of the biopsy. SPECIMENS: Yes EBL: Minimal COMPLICATIONS: None QUALITY of prep: Excellent Procedure in detail: The patient gave written consent and was in agreement with the indications, the potential risks as well as the benefits of the procedure. They were taken to the endoscopy suite and laid in the left lateral decubitus position. A timeout was performed and anesthesia was administered which was tolerated well. I started the procedure. Digital rectal and visual examination was performed and grossly within normal limits. A well-lubricated flexible colonoscope was then introduced and passed without any notable difficulty all the way past the tattoo site and into the transverse colon. I then slowly withdrew the colonoscopy back to the tattoo site carefully inspecting the whole area. Findings noted above. The patient tolerated the procedure well and was taken to the PACU in hemodynamically stable condition.
--- NOTE | 2024-12-16 08:19 | W.PM.DSUDISC ---
Date of service: 12/16/24 Discharge Plan Disposition Patient Disposition: Home Condition: Good Discharge Details Attending Provider: Wilmer Mon Primary Care Provider: Kingsley Sanchez Home Meds and New Rx's Prescriptions: No Action acetaminophen 325 mg capsule 650 mg PO Q4H PRN sodium chloride 1 gram tablet 1,000 mg PO BID Qty: 180 2RF lisinopril 10 mg tablet See Rx Instructions .ROUTE .COMPLEX Qty: 90 3RF Dose Instruction: TAKE ONE TABLET BY MOUTH EVERY DAY Rx Instructions: TAKE ONE TABLET BY MOUTH EVERY DAY hydrochlorothiazide 25 mg tablet See Rx Instructions .ROUTE .COMPLEX Qty: 90 3RF Dose Instruction: TAKE ONE TABLET BY MOUTH EVERY DAY Rx Instructions: TAKE ONE TABLET BY MOUTH EVERY DAY bisacodyl [Dulcolax (bisacodyl)] 5 mg tablet,delayed release (DR/EC) 5 mg PO ONCE Qty: 4 0RF Rx Instructions: take per colonoscopy instructions polyethylene glycol 3350 17 gram/dose powder 238 g PO ONCE Qty: 238 0RF Rx Instructions: take per colonoscopy instructions Discharge Instructions Additional Instructions: FINDINGS: The site where we removed the polyp/tumor from before was easily found. Overall looks good. There was a VERY TINY little area which COULD represent some polyp growing back. This area was biopsied so that we will know for sure. After the biopsy, and the entire area and the area around it was BURNED with cautery to destroy it, just in case it is cancer tissue growing back. We will call you in a week or so when we get the results back. Stand Alone Forms: Anesthesia Discharge Inst., Colonoscopy Post Instructions, Viridiana Quarles (DSU) Activity:: Activity as Tolerated Diet:: As Tolerated DS: Diagnosis Discharge Diagnosis (1) Colon cancer: Status: Chronic
--- NOTE | 2024-12-16 08:25 | W.ANESPOSTOP ---
Postoperative Evaluation Date, Time and Location Date Performed: 12/16/24 Time Performed: 08:15 Patient Location: Day Surgery Unit Vital Signs Most Recent Imported Vital Signs: Most Recent Vital Signs Temp Pulse Resp BP Pulse Ox 36.2 C L 65 16 124/63 98 12/16/24 08:04 12/16/24 08:04 12/16/24 08:04 12/16/24 08:04 12/16/24 08:04 Pain Score Most Recent Pain Score: Most Recent Pain Score Pain Level 0 12/16/24 08:04 Assessment Mental Status: Awake (Alert & Oriented to Patient Baseline) Airway and Respiratory Function: Patent airway with normal (patient baseline) respiratory exam Cardiovascular Function: Hemodynamically Stable Hydration Status: Adequately Hydrated Nausea & Vomiting: No Nausea or Vomiting Pain: Pt. Denies Any Pain Peripheral Nerve Block: Patient did not receive a nerve block
[2024-12-16 08:30] VITALS: BP 134/72; PULSE 64; RESP 16; TEMP 36.2; O2SAT 98
== END 2024-12-16 08:58 | disposition home or self-care (01) ==
PROVIDERS: PCP Nurse Practitioner Family; Visit Provider Student in an Organized Health Care Education/Training Program
PROC: 0DJD8ZZ Inspection of Lower Intestinal Tract, Via Natural or Artificial Opening Endoscopic (ICD-10-PCS; CPT 45378; principal; 2024-12-16 07:30)
DX: Z12.11 Encounter for screening for malignant neoplasm of colon (principal); C18.9 Malignant neoplasm of colon, unspecified; K64.8 Other hemorrhoids
CPT/HCPCS: 45385; 45380; 88305; J2704